=== PATIENT | male | born 1965 | race Caucasian/White ===

== ENCOUNTER 2016-03-08 18:10 | Emergency (ER) | payer OTHER ==
[2016-03-08] MEDS ORDERED: NORCO, ANEXSIA 5/325MG TABLET (HYDROcodone/ACETAMINOPHEN) As Ordered ONE (19:04)
--- NOTE | 2016-03-08 20:10 | EDDOCDS ---
Physician Documentation [facility] Name: Ajay Rodriguez Age: 50 yrs Sex: Male : 1965 Arrival Date: 03/08/2016 Time: 18:10 Bed PR Private MD: NO PRIMARY PHYSICIAN, . Disposition: 03/08/16 19:55 Discharged to Home/Self Care. Impression: Sprain of unspecified site of left knee. - Condition is Stable. - Discharge Instructions: Crutch Use, Knee Sprain. - Prescriptions for [place] 5- 325 mg Oral Tablet - take 1 tablet by ORAL route every 6 hours As needed MDD: 4 tabs; 10 tablet. - Work Release Form - 5 day, Medication Reconciliation, Local Pharmacy Hours form. - Follow up: Emergency Department; When: As needed; Reason: Worsening of conditions. Follow up: [facility]; When: Call to arrange an appointment; Reason: Wound/Symptom Recheck, Further diagnostic work-up, Recheck today's complaints, Continuance of care, To establish care. - Problem is new. - Symptoms are unchanged. Historical: - Allergies: Coconut; - Home Meds: 1. gabapentin 300 mg Oral tab daily as needed 2. hydrocodone-acetaminophen 7.5-325 mg Oral tab as needed 3. Flexeril 10 mg Oral tab daily 4. albuterol sulfate 2.5 mg/0.5 mL Inhl nebu twice a day - PMHx: Restless leg syndrome; Bulging disc; COPD; - PSHx: Left knee repair; Scar surgery to left leg; Tonsillectomy; Nose surgery; - Social history: Smoking status: Patient uses tobacco products, light tobacco smoker. No barriers to communication noted, The patient speaks fluent Belizean, Speaks appropriately for age. - Family history: Not pertinent. - : The pt / caregiver states he / she is not on anticoagulants. Home medication list is obtained from the patient. - Exposure Risk Screening:: None identified. Vital Signs: 03/08 18:12 BP 158 / 93; Pulse 83; Resp 18 S; Temp 97.0(O); Pulse Ox 97% on R/A; Weight 97.52 kg / dd6 214.99 lbs (R); Height 5 ft. 8 in. (172.72 cm) (R); 20:01 BP 136 / 90 RA Sitting (auto/lg); Pulse 68; Resp 16; Temp 97.5(O); Pulse Ox 97% on R/A; rs6 Pain 6/10; 18:12 Body Mass Index 32.69 (97.52 kg, 172.72 cm) dd6 MDM: 18:18 Knee, Complete Ordered. EDMS 19:01 HYDROcodone-acetaminophen 5 mg-325 mg 1 tabs PO once ordered. dt4 19:29 [facility] Payment Agreement was scanned into [employer] and attached to record. gjb 19:29 Financial registration complete. gjb 19:52 Knee Immobilizer ordered. dt4 19:52 Crutches ordered. dt4 Administered Medications: 19:09 Drug: HYDROcodone-acetaminophen 1 tabs [hydrocodone 5 mg-acetaminophen 325 mg tablet (1 cjh tabs)] Route: PO; 20:08 Follow up: Response: Confirmed pt not driving.; No Adverse Reaction; No significant cjh change. Signatures: Dispatcher [employer] EDMN Jennifer Thao RN RN [facility] Re Yun, PA-C PA-C dt4 Agata Chacko RN RN kc3 Pascale Shah The chart was reviewed and I authenticate all verbal orders and agree with the evaluation and treatment provided.Attachments: 19:29 [facility] Payment Agreement [facility] MTDD
--- NOTE | 2016-03-08 20:10 | EDDOCDS ---
Nurse's Notes [facility] Name: Ajay Rodriguez Age: 50 yrs Sex: Male : 1965 Arrival Date: 03/08/2016 Time: 18:10 Bed PR Private MD: NO PRIMARY PHYSICIAN, . Diagnosis: Sprain of unspecified site of left knee Presentation: 03/08 18:14 Presenting complaint: Patient states: slipped on ice today landing on left knee with no kc3 head injury reported. Adult Sepsis Screening: The patient does not have new or worsening altered mentation. Patient's respiratory rate is less than 22. Systolic blood pressure is greater than 100. Patient has a qSOFA score of 0- Negative Sepsis Screen. Suicide/Homicide risk assessment- the patient denies having any suicidal and/or homicidal ideations and does not present with any other emotional, behavioral or mental health complaints. Status: Patient is not a account services analyst or dependent. Transition of care: patient was not received from another setting of care. 18:14 Acuity: LEONILA Level 3 kc3 18:14 Method Of Arrival: Walkin/Carried/Asstd kc3 Triage Assessment: 18:20 General: Appears in no apparent distress, comfortable, Behavior is appropriate for age, kc3 cooperative. Pain: Location: left knee Pain currently is 8 out of 10 on a pain scale. Pt Declines HIV testing. Neurological: Level of Consciousness is awake, alert, obeys commands. Respiratory: Respiratory effort is even, unlabored. Derm: Skin is pink, warm & dry. Musculoskeletal: Circulation, motion, and sensation intact Range of motion limited in left knee. Historical: - Allergies: Coconut; - Home Meds: 1. gabapentin 300 mg Oral tab daily as needed 2. hydrocodone-acetaminophen 7.5-325 mg Oral tab as needed 3. Flexeril 10 mg Oral tab daily 4. albuterol sulfate 2.5 mg/0.5 mL Inhl nebu twice a day - PMHx: Restless leg syndrome; Bulging disc; COPD; - PSHx: Left knee repair; Scar surgery to left leg; Tonsillectomy; Nose surgery; - Social history: Smoking status: Patient uses tobacco products, light tobacco smoker. No barriers to communication noted, The patient speaks fluent Turkish, Speaks appropriately for age. - Family history: Not pertinent. - : The pt / caregiver states he / she is not on anticoagulants. Home medication list is obtained from the patient. - Exposure Risk Screening:: None identified. Screenin:11 Screening information is obtained from the patient. Fall risk: No risks identified. [facility] Assistance ADL's: requires no assistance with activities of daily living. Abuse/DV Screen: The patient / caregiver reports he/she is: not in a situation that causes fear, pain or injury. Nutritional screening: No deficits noted. Advance Directives: There is no active DNR order. home support is adequate. Assessment: 19:11 General: Appears in no apparent distress, comfortable, Behavior is appropriate for age, [facility] cooperative. Pain: Location: left leg and left knee Pain currently is 6 out of 10 on a pain scale. Respiratory: Airway is patent Respiratory effort is even, unlabored, Respiratory pattern is regular, symmetrical. Derm: Skin is pink, warm & dry. Musculoskeletal: Range of motion limited in left knee and left ankle. 20:06 General: No changes from previous assessment, knee immobilizer applied, crutch training [facility] completed, denies further needs. Reviewed discharge instructions, all questions answered, escorted via wheelchair to lobby where awaiting ride. Vital Signs: 18:12 BP 158 / 93; Pulse 83; Resp 18 S; Temp 97.0(O); Pulse Ox 97% on R/A; Weight 97.52 kg dd6 (R); Height 5 ft. 8 in. (172.72 cm) (R); 20:01 BP 136 / 90 RA Sitting (auto/lg); Pulse 68; Resp 16; Temp 97.5(O); Pulse Ox 97% on R/A; rs6 Pain 6/10; 18:12 Body Mass Index 32.69 (97.52 kg, 172.72 cm) dd6 Vitals: 18:12 Log In Time: March 08, 2016 at 18:10. dd6 ED Course: 18:12 Patient visited by Samy Ng PCA. dd6 18:12 NO PRIMARY PHYSICIAN, . is Private Physician. dd6 18:12 Patient moved to Waiting dd6 18:12 Patient moved to Pre RCE dd6 18:15 Triage Initiated kc3 18:24 Patient moved to Triage 2 ms18 18:49 Re Yun PA-C is PHCP. dt4 18:49 Roula Hess MD is Attending Physician. dt4 18:49 Patient visited by Re Yun PA-C. dt4 19:09 Patient moved to TR1 rs6 19:11 The patient / caregiver is instructed regarding the plan of care and ED course. [facility] 19:29 [facility] Payment Agreement was scanned into [employer] and attached to record. gjb 19:41 Patient name changed from Ajay\S\\S\Jennifer\S\ to Ajay\S\Wyatt\S\Jennifer. EDMS 19:52 [facility] is Referral Physician. dt4 19:53 Patient moved to PR / [facility] 20:01 Pt greeted and oriented to ED. Patient advised of names of staff involved in care, rs6 location of call story, wait times and NPO status. Patient has correct armband on for positive identification. Cardiac monitoring not applicable on this patient. 20:01 Knee immobilizer applied on left knee. Patient with positive distal sensation and brisk rs6 distal capillary refill after application. 20:05 Patient visited by Ashia Dubon PCA. rs6 20:06 No IV's were initiated during this patient's visit. No procedures done that require [facility] assistance. Administered Medications: 19:09 Drug: HYDROcodone-acetaminophen 1 tabs [hydrocodone 5 mg-acetaminophen 325 mg tablet (1 cjh tabs)] Route: PO; 20:08 Follow up: Response: Confirmed pt not driving.; No Adverse Reaction; No significant cjh change. Order Results: There are currently no results for this order. Outcome: 19:55 Discharge ordered by Provider. dt4 20:06 Discharge Assessment: Patient awake, alert and oriented x 3. No cognitive and/or cjh functional deficits noted. Patient verbalized understanding of disposition instructions. patient administered narcotics - yes. Pt provided with safe discharge. The following High Risk Discharge criteria are identified: None. Discharged to home via wheelchair, with crutches. Condition: good Condition: stable. Discharge instructions given to patient, Instructed on discharge instructions, follow up and referral plans. medication usage, no driving heavy equipment, Rest, Ice, Compression and Elevation. crutch walking, no drinking with medication. No special radiology studies were completed. Property :Personal belongings accompany Pt. 20:09 Patient left the ED. [facility] Signatures: Dispatcher [employer] EDMS BereniceSumeetSamy, JAPANESE TUTOR JAPANESE TUTOR dd6 Jennifer Thao,RN RN [facility] Re Yun PA-C PA-C dt4 Germania LiRN RN ms18 Ashia Dubon, JAPANESE TUTOR JAPANESE TUTOR rs6 Agata Chacko,RN RN kc3 Pascale Shah MTDD
--- NOTE | 2016-03-08 21:59 | REP ---
Clinical: Trauma/injury. Technique: AP, lateral, bilateral oblique and sunrise views of the left knee. Findings: Mild tricompartmental osteoarthritic degenerative changes are appreciated. No acute fracture or dislocation identified. No definite effusion. Mild anterolateral soft tissue swelling suggested. Impression: Mild swelling and tricompartmental osteoarthritic degenerative changes. No acute fracture or dislocation identified. Signed by Edward Amaro MD 03/08/2016 09:51 P
--- NOTE | 2016-03-10 21:10 | EDDOCDS ---
Physician Documentation [facility] Name: Ajay Rodriguez Age: 50 yrs Sex: Male : 1965 Arrival Date: 03/08/2016 Time: 18:10 Bed PR Private MD: NO PRIMARY PHYSICIAN, . Disposition: 03/08/16 19:55 Discharged to Home/Self Care. Impression: Sprain of unspecified site of left knee. - Condition is Stable. - Discharge Instructions: Crutch Use, Knee Sprain. - Prescriptions for [place] 5- 325 mg Oral Tablet - take 1 tablet by ORAL route every 6 hours As needed MDD: 4 tabs; 10 tablet. - Work Release Form - 5 day, Medication Reconciliation, Local Pharmacy Hours form. - Follow up: Emergency Department; When: As needed; Reason: Worsening of conditions. Follow up: [facility]; When: Call to arrange an appointment; Reason: Wound/Symptom Recheck, Further diagnostic work-up, Recheck today's complaints, Continuance of care, To establish care. - Problem is new. - Symptoms are unchanged. Historical: - Allergies: Coconut; - Home Meds: 1. gabapentin 300 mg Oral tab daily as needed 2. hydrocodone-acetaminophen 7.5-325 mg Oral tab as needed 3. Flexeril 10 mg Oral tab daily 4. albuterol sulfate 2.5 mg/0.5 mL Inhl nebu twice a day - PMHx: Restless leg syndrome; Bulging disc; COPD; - PSHx: Left knee repair; Scar surgery to left leg; Tonsillectomy; Nose surgery; - Social history: Smoking status: Patient uses tobacco products, light tobacco smoker. No barriers to communication noted, The patient speaks fluent Welsh, Speaks appropriately for age. - Family history: Not pertinent. - : The pt / caregiver states he / she is not on anticoagulants. Home medication list is obtained from the patient. - Exposure Risk Screening:: None identified. Vital Signs: 03/08 18:12 BP 158 / 93; Pulse 83; Resp 18 S; Temp 97.0(O); Pulse Ox 97% on R/A; Weight 97.52 kg / dd6 214.99 lbs (R); Height 5 ft. 8 in. (172.72 cm) (R); 20:01 BP 136 / 90 RA Sitting (auto/lg); Pulse 68; Resp 16; Temp 97.5(O); Pulse Ox 97% on R/A; rs6 Pain 08/06; 18:12 Body Mass Index 32.69 (97.52 kg, 172.72 cm) dd6 MDM: 18:18 Knee, Complete Ordered. EDMS 19:01 HYDROcodone-acetaminophen 5 mg-325 mg 1 tabs PO once ordered. dt4 : [facility] Payment Agreement was scanned into [employer] and attached to record. gjb : Financial registration complete. gjb 19:52 Knee Immobilizer ordered. dt4 19:52 Crutches ordered. dt4 03/09 09:30 T-Sheet-- Draft Copy was scanned into [employer] and attached to record. gb Administered Medications: 03/08 19:09 Drug: HYDROcodone-acetaminophen 1 tabs [hydrocodone 5 mg-acetaminophen 325 mg tablet (1 cjh tabs)] Route: PO; 20:08 Follow up: Response: Confirmed pt not driving.; No Adverse Reaction; No significant cj change. Signatures: Dispatcher [employer]Host EDMN Osiris Mednia, Reg Reg gb Jennifer Thao RN RN [facility] Re Yun PA-C PA-C dt4 Agata Chacko,JACOB RN fredy3 Pascale Shah The chart was reviewed and I authenticate all verbal orders and agree with the evaluation and treatment provided.Attachments: : [facility] Payment Agreement gjb 03/09 09:30 T-Sheet-- Draft Copy gb Chart Complete MTDD
--- NOTE | 2016-03-10 21:10 | EDDOCDS ---
Nurse's Notes [facility] Name: Ajay Rodriguez Age: 50 yrs Sex: Male : 1965 Arrival Date: 03/08/2016 Time: 18:10 Bed PR Private MD: NO PRIMARY PHYSICIAN, . Diagnosis: Sprain of unspecified site of left knee Presentation: 03/08 18:14 Presenting complaint: Patient states: slipped on ice today landing on left knee with no kc3 head injury reported. Adult Sepsis Screening: The patient does not have new or worsening altered mentation. Patient's respiratory rate is less than 22. Systolic blood pressure is greater than 100. Patient has a qSOFA score of 0- Negative Sepsis Screen. Suicide/Homicide risk assessment- the patient denies having any suicidal and/or homicidal ideations and does not present with any other emotional, behavioral or mental health complaints. Status: Patient is not a reference services head or dependent. Transition of care: patient was not received from another setting of care. 18:14 Acuity: LEONILA Level 3 kc3 18:14 Method Of Arrival: Walkin/Carried/Asstd kc3 Triage Assessment: 18:20 General: Appears in no apparent distress, comfortable, Behavior is appropriate for age, kc3 cooperative. Pain: Location: left knee Pain currently is 8 out of 10 on a pain scale. Pt Declines HIV testing. Neurological: Level of Consciousness is awake, alert, obeys commands. Respiratory: Respiratory effort is even, unlabored. Derm: Skin is pink, warm & dry. Musculoskeletal: Circulation, motion, and sensation intact Range of motion limited in left knee. Historical: - Allergies: Coconut; - Home Meds: 1. gabapentin 300 mg Oral tab daily as needed 2. hydrocodone-acetaminophen 7.5-325 mg Oral tab as needed 3. Flexeril 10 mg Oral tab daily 4. albuterol sulfate 2.5 mg/0.5 mL Inhl nebu twice a day - PMHx: Restless leg syndrome; Bulging disc; COPD; - PSHx: Left knee repair; Scar surgery to left leg; Tonsillectomy; Nose surgery; - Social history: Smoking status: Patient uses tobacco products, light tobacco smoker. No barriers to communication noted, The patient speaks fluent Turkish, Speaks appropriately for age. - Family history: Not pertinent. - : The pt / caregiver states he / she is not on anticoagulants. Home medication list is obtained from the patient. - Exposure Risk Screening:: None identified. Screenin:11 Screening information is obtained from the patient. Fall risk: No risks identified. [facility] Assistance ADL's: requires no assistance with activities of daily living. Abuse/DV Screen: The patient / caregiver reports he/she is: not in a situation that causes fear, pain or injury. Nutritional screening: No deficits noted. Advance Directives: There is no active DNR order. home support is adequate. Assessment: 19:11 General: Appears in no apparent distress, comfortable, Behavior is appropriate for age, [facility] cooperative. Pain: Location: left leg and left knee Pain currently is 6 out of 10 on a pain scale. Respiratory: Airway is patent Respiratory effort is even, unlabored, Respiratory pattern is regular, symmetrical. Derm: Skin is pink, warm & dry. Musculoskeletal: Range of motion limited in left knee and left ankle. 20:06 General: No changes from previous assessment, knee immobilizer applied, crutch training [facility] completed, denies further needs. Reviewed discharge instructions, all questions answered, escorted via wheelchair to lobby where awaiting ride. Vital Signs: 18:12 BP 158 / 93; Pulse 83; Resp 18 S; Temp 97.0(O); Pulse Ox 97% on R/A; Weight 97.52 kg dd6 (R); Height 5 ft. 8 in. (172.72 cm) (R); 20:01 BP 136 / 90 RA Sitting (auto/lg); Pulse 68; Resp 16; Temp 97.5(O); Pulse Ox 97% on R/A; rs6 Pain 6/10; 18:12 Body Mass Index 32.69 (97.52 kg, 172.72 cm) dd6 Vitals: 18:12 Log In Time: March 08, 2016 at 18:10. dd6 ED Course: 18:12 Patient visited by Samy Ng PCA. dd6 18:12 NO PRIMARY PHYSICIAN, . is Private Physician. dd6 18:12 Patient moved to Waiting dd6 18:12 Patient moved to Pre RCE dd6 18:15 Triage Initiated kc3 18:24 Patient moved to Triage 2 ms18 18:49 Re Yun PA-C is PHCP. dt4 18:49 Roula Hess MD is Attending Physician. dt4 18:49 Patient visited by Re Yun PA-C. dt4 19:09 Patient moved to TR1 rs6 19:11 The patient / caregiver is instructed regarding the plan of care and ED course. cjh 19:29 [facility] Payment Agreement was scanned into [employer] and attached to record. gjb 19:41 Patient name changed from Ajay\S\\S\Jennifer\S\ to Ajay\S\Wyatt\S\Jennifer. EDMS 19:52 [facility] is Referral Physician. dt4 19:53 Patient moved to PR2 / cj 20:01 Pt greeted and oriented to ED. Patient advised of names of staff involved in care, rs6 location of call story, wait times and NPO status. Patient has correct armband on for positive identification. Cardiac monitoring not applicable on this patient. 20:01 Knee immobilizer applied on left knee. Patient with positive distal sensation and brisk rs6 distal capillary refill after application. 20:05 Patient visited by Ashia Dubon PCA. rs6 20:06 No IV's were initiated during this patient's visit. No procedures done that require [facility] assistance. 22:46 Knee, Complete Returned. EDMS 01 09:30 T-Sheet-- Draft Copy was scanned into [employer] and attached to record. gb Administered Medications: 03/08 19:09 Drug: HYDROcodone-acetaminophen 1 tabs [hydrocodone 5 mg-acetaminophen 325 mg tablet (1 cjh tabs)] Route: PO; 20:08 Follow up: Response: Confirmed pt not driving.; No Adverse Reaction; No significant cj change. Order Results: Radiology Order: Knee, Complete Test: Knee, Complete REASON FOR EXAMINATION: left knee injury; Clinical: Trauma/injury.; ; Technique: AP, lateral, bilateral oblique and sunrise views of the left knee.; ; Findings:; Mild tricompartmental osteoarthritic degenerative changes are appreciated. No; acute fracture or dislocation identified. No definite effusion. Mild; anterolateral soft tissue swelling suggested.; ; Impression:; Mild swelling and tricompartmental osteoarthritic degenerative changes.; No acute fracture or dislocation identified.; ; ; Signed by; Edward Amaro MD 03/08/2016 09:51 P; Outcome: 19:55 Discharge ordered by Provider. dt4 20:06 Discharge Assessment: Patient awake, alert and oriented x 3. No cognitive and/or [facility] functional deficits noted. Patient verbalized understanding of disposition instructions. patient administered narcotics - yes. Pt provided with safe discharge. The following High Risk Discharge criteria are identified: None. Discharged to home via wheelchair, with crutches. Condition: good Condition: stable. Discharge instructions given to patient, Instructed on discharge instructions, follow up and referral plans. medication usage, no driving heavy equipment, Rest, Ice, Compression and Elevation. crutch walking, no drinking with medication. No special radiology studies were completed. Property :Personal belongings accompany Pt. 20:09 Patient left the ED. [facility] Signatures: Dispatcher [employer] EDMS Osiris Medina, Reg Reg gb Samy Ng, POWER WHEELCHAIR MECHANIC POWER WHEELCHAIR MECHANIC dd6 Jennifer Thao RN RN [facility] Re Yun, PA-C PA-C dt4 Germania Li,JACOB RN ms18 Ashia Dubon, POWER WHEELCHAIR MECHANIC POWER WHEELCHAIR MECHANIC rs6 Agata Chacko RN RN kc3 Pascale Shah Chart Complete MTDD
--- NOTE | 2016-03-10 21:10 | EDDOCDS ---
Physician Documentation [facility] Name: Ajay Rodriguez Age: 50 yrs Sex: Male : 1965 Arrival Date: 03/08/2016 Time: 18:10 Bed PR Private MD: NO PRIMARY PHYSICIAN, . Disposition: 03/08/16 19:55 Discharged to Home/Self Care. Impression: Sprain of unspecified site of left knee. - Condition is Stable. - Discharge Instructions: Crutch Use, Knee Sprain. - Prescriptions for [place] 5- 325 mg Oral Tablet - take 1 tablet by ORAL route every 6 hours As needed MDD: 4 tabs; 10 tablet. - Work Release Form - 5 day, Medication Reconciliation, Local Pharmacy Hours form. - Follow up: Emergency Department; When: As needed; Reason: Worsening of conditions. Follow up: [facility]; When: Call to arrange an appointment; Reason: Wound/Symptom Recheck, Further diagnostic work-up, Recheck today's complaints, Continuance of care, To establish care. - Problem is new. - Symptoms are unchanged. Historical: - Allergies: Coconut; - Home Meds: 1. gabapentin 300 mg Oral tab daily as needed 2. hydrocodone-acetaminophen 7.5-325 mg Oral tab as needed 3. Flexeril 10 mg Oral tab daily 4. albuterol sulfate 2.5 mg/0.5 mL Inhl nebu twice a day - PMHx: Restless leg syndrome; Bulging disc; COPD; - PSHx: Left knee repair; Scar surgery to left leg; Tonsillectomy; Nose surgery; - Social history: Smoking status: Patient uses tobacco products, light tobacco smoker. No barriers to communication noted, The patient speaks fluent Egyptian, Speaks appropriately for age. - Family history: Not pertinent. - : The pt / caregiver states he / she is not on anticoagulants. Home medication list is obtained from the patient. - Exposure Risk Screening:: None identified. Vital Signs: 03/08 18:12 BP 158 / 93; Pulse 83; Resp 18 S; Temp 97.0(O); Pulse Ox 97% on R/A; Weight 97.52 kg / dd6 214.99 lbs (R); Height 5 ft. 8 in. (172.72 cm) (R); 20:01 BP 136 / 90 RA Sitting (auto/lg); Pulse 68; Resp 16; Temp 97.5(O); Pulse Ox 97% on R/A; rs6 Pain 08/06; 18:12 Body Mass Index 32.69 (97.52 kg, 172.72 cm) dd6 MDM: 18:18 Knee, Complete Ordered. EDMS 19:01 HYDROcodone-acetaminophen 5 mg-325 mg 1 tabs PO once ordered. dt4 : [facility] Payment Agreement was scanned into [address] and attached to record. gjb : Financial registration complete. gjb 19:52 Knee Immobilizer ordered. dt4 19:52 Crutches ordered. dt4 03/09 09:30 T-Sheet-- Draft Copy was scanned into [address] and attached to record. gb Administered Medications: 03/08 19:09 Drug: HYDROcodone-acetaminophen 1 tabs [hydrocodone 5 mg-acetaminophen 325 mg tablet (1 cjh tabs)] Route: PO; 20:08 Follow up: Response: Confirmed pt not driving.; No Adverse Reaction; No significant cj change. Signatures: Dispatcher [employer] EDMO Osiris Medina, Reg Reg gb Jennifer Thao RN RN [facility] Re Yun PA-C PA-C dt4 Agata Chacko,JACOB RN [email or web address] Pascale Shah The chart was reviewed and I authenticate all verbal orders and agree with the evaluation and treatment provided.Attachments: : [facility] Payment Agreement gjb 03/09 09:30 T-Sheet-- Draft Copy gb Chart Complete MTDD
== END 2016-03-08 20:09 | disposition home or self-care (01) ==
LOC: M ED 18:10
DX: S83.92XA Sprain of unspecified site of left knee, initial encounter (principal); W19.XXXA Unspecified fall, initial encounter; Y92.89 Other specified places as the place of occurrence of the external cause; Y93.89 Activity, other specified; Y99.0 Civilian activity done for income or pay; G25.81 Restless legs syndrome; M51.9 Unspecified thoracic, thoracolumbar and lumbosacral intervertebral disc disorder; J44.9 Chronic obstructive pulmonary disease, unspecified; Z79.51 Long term (current) use of inhaled steroids; Z79.899 Other long term (current) drug therapy; Z91.018 Allergy to other foods; F17.210 Nicotine dependence, cigarettes, uncomplicated

== ENCOUNTER 2016-08-25 19:01 | Emergency (ER) | payer MEDICAID, OTHER ==
[~2016-08-25] VITALS: Ht 175.3 cm; Wt 48.2 kg
[2016-08-25] MEDS ORDERED: HYDROmorphone HCL 1 MG/ML SYRINGE (J1170) IM ONE (23:15)
--- NOTE | 2016-08-26 | REPUSA ---
CT of the lumbar spine without contrast Clinical history: Pain. Trauma. Technique: Multiple axial CT images were obtained through the lumbar spine without administration of contrast. Coronal and sagittal 3-D reconstructed images were also obtained. Findings: The lumbar vertebral bodies are in satisfactory positioning and alignment. No fractures or dislocatio ns are demonstrated. Intervertebral disc spaces are well-maintained. There is no evidence of facet ruiz bluxation. The neural foramen appear grossly patent. The spinal canal demonstrates normal caliber and contour without evidence of spinal stenosis. The surrounding soft tissues are within normal limits. Impression: Unremarkable CT examination of the lumbar spine.
[2016-08-26 00:35] VITALS: BP 130/85
== END 2016-08-26 00:39 | disposition home or self-care (01) ==
LOC: EDBD 19:01 → M ED 19:01
DX: S39.012A Strain of muscle, fascia and tendon of lower back, initial encounter (principal); X58.XXXA Exposure to other specified factors, initial encounter; Y92.89 Other specified places as the place of occurrence of the external cause; Y93.89 Activity, other specified; Y99.8 Other external cause status; M51.36 Other intervertebral disc degeneration, lumbar region; J44.9 Chronic obstructive pulmonary disease, unspecified; Z87.442 Personal history of urinary calculi; F17.200 Nicotine dependence, unspecified, uncomplicated

== ENCOUNTER 2016-11-19 16:42 | Emergency (ER) | payer OTHER ==
[~2016-11-19] VITALS: Ht 172.7 cm; Wt 107.7 kg
[2016-11-19] MEDS ORDERED: NS 1,000 ML IV SCH (16:58)
[2016-11-19] MEDS ORDERED: ASPIRIN 81 MG CHEW TABLET PO ONE (17:00)
[2016-11-19] MEDS: NITROGLYCERIN 0.4 MG SUBL TABLET SL PRN ×2 (17:13→17:46)
[2016-11-19 17:32] LABS: BASO # 0.1 K/mm3 (0.0-0.2); BASO % 0.8 % (0.0-1.0); EOS # 0.1 K/mm3 (0.0-0.50); EOS % 1.6 % (0.0-3.0); LARGE UNSTAINED CELL # 0.1 K/mm3 (0.0-0.4); LARGE UNSTAINED CELL % 1.8 % (0.0-4.0); LYMPH # 1.8 K/mm3 (1.5-4.5); LYMPH % 25.2 % (24.0-44.0); MEAN CORPUSCULAR HEMOGLOBIN 31.9 pg (27.0-33.0); MEAN CORPUSCULAR VOLUME 88.7 fl (80.0-96.0); MONO # 0.4 K/mm3 (0.0-0.8); MONO % 5.4 % (0.0-5.0); NEUTROPHILS # 4.7 K/mm3 (1.8-7.7); NEUTROPHILS % 65.1 % (36.0-66.0); PLATELET COUNT, AUTOMATED 246 k/mm3 (150-450); RED CELL DISTRIBUTION WIDTH 13.4 % (11.5-14.5); WHITE BLOOD COUNT 7.2 K/mm3 (4.0-10.0)
[2016-11-19 17:34] LABS: INR 0.94
[2016-11-19 17:45] LABS: ALBUMIN 3.7 GM/DL (3.2-5.2); ALBUMIN/GLOBULIN RATIO 1.09 (1.00-1.93); ALKALINE PHOSPHATASE 63 U/L (45-117); ALT/SGPT 35 U/L (12-78); ANION GAP 8 MEQ/L (8-16); AST/SGOT 12 U/L (15-37); BILIRUBIN,DIRECT 0.1 MG/DL (0.0-0.2); BILIRUBIN,TOTAL 0.6 MG/DL (0.2-1.0); BLOOD UREA NITROGEN 14 MG/DL (7-18); CALCIUM LEVEL 8.1 MG/DL (8.5-10.1); CARBON DIOXIDE LEVEL 27 MEQ/L (21-32); CHLORIDE LEVEL 105 MEQ/L (98-107); CREATININE FOR GFR 0.81 MG/DL (0.70-1.30); GLOMERULAR FILTRATION RATE > 60.0 (>56); GLUCOSE, FASTING 78 MG/DL (70-105); POTASSIUM SERUM 3.8 MEQ/L (3.5-5.1); SODIUM LEVEL 140 MEQ/L (136-145); TOTAL PROTEIN 7.1 GM/DL (6.4-8.2)
[2016-11-19 17:46] VITALS: BP 138/83
[2016-11-19] MEDS ORDERED: ALBU17IN2 INH (18:28)
[2016-11-19 18:45] VITALS: BP 132/82
--- NOTE | 2016-11-20 13:20 | REP ---
CHEST, SINGLE VIEW: There is no evidence of acute infiltrate. No pleural effusion is seen. The heart is normal in size. The mediastinal silhouette is unremarkable. The visualized osseous structures are intact. IMPRESSION: No acute pulmonary disease. Signed by Haris Uribe MD 11/20/2016 07:03 P
--- NOTE | 2016-11-21 08:20 | ECGEPIP ---
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
== END 2016-11-19 18:49 | disposition home or self-care (01) ==
LOC: M ED 16:42
DX: R07.89 Other chest pain (principal); J44.9 Chronic obstructive pulmonary disease, unspecified; I10 Essential (primary) hypertension; F17.210 Nicotine dependence, cigarettes, uncomplicated

== ENCOUNTER → 2017-01-18 | Outpatient (CLI) | payer OTHER ==
[~2017-01-18] MED LIST: ALBU17IN2 INH
--- NOTE | 2017-01-24 18:44 | SLEEPHOME ---
DATE OF PROCEDURE: 01/18/2017 ORDERED BY: Dr. Santos Diagnostic home sleep testing was performed due to concern for the obstructive sleep apnea syndrome. For testing, a NOX-T3 respiratory monitoring device was used. Continuous record was made of pulse, oxygen saturation, air flow, chest and abdominal strain and body position. 10 hours and 59 minutes of data were reviewed. Of these, 6 hours were marked as time in bed. During the interval marked time in bed, there were 108 respiratory events identified of 10 seconds in duration or greater for a respiratory event index of 18. The events were primarily obstructive. Baseline pulse rate 52. Pulse rate ranged 100 to 39. Baseline saturation 91%. Lowest oxygen saturation 81%. Testing was performed in both the supine and nonsupine positions. IMPRESSION: Abnormal home sleep testing with repetitive respiratory events and oxygen desaturations to 81% with a respiratory event index of 18 is consistent with the obstructive sleep apnea syndrome. RECOMMENDATION: The patient should be encouraged to undergo a formal sleep evaluation and in laboratory pressure titration.
== END ==
LOC: M SLEEP HO 09:56
PROVIDERS: ATTEND Family Medicine Addiction Medicine
DX: G47.33 Obstructive sleep apnea (adult) (pediatric) (principal)

== ENCOUNTER → 2017-02-08 | Outpatient (CLI) | payer OTHER ==
[~2017-02-08] MED LIST changes: +ALBU83IN INH; +ANOR1AER IN; +ARNU1INH3 IN; +LIPI80TA PO; +PANT40TA2 PO
--- NOTE | 2017-02-08 10:29 | REP ---
Abdominal right upper quadrant ultrasound: There is a negative Blanco's sign to transducer pressure. There are multiple small non mobile noncalcified polyps versus adherent noncalcified calculi along the gallbladder wall measuring approximate 3 mm in diameter. There are no mobile gallbladder calculi. No gallbladder wall thickening or pericholecystic fluid. There is no intrahepatic or extrahepatic biliary duct dilatation. The common duct measures 4.5 mm in diameter. The hepatic parenchyma is mildly hyperechoic compatible with hepato steatosis. The visualized portion of the pancreatic head is unremarkable. The body and tail are obscured by bowel gas. There is no right renal hydronephrosis or calculus. There is a 9 mm upper pole simple cyst. There is no solid renal mass. The right kidney is normal size measuring 10.4 cm craniocaudad length. There is no free fluid in the right upper quadrant. Impression: Gallbladder polyps versus adherent noncalcified calculi. Otherwise, negative abdominal right upper quadrant ultrasound. The simple cyst in the right kidney is incidentally noted. Signed by Haris Camejo MD 02/08/2017 10:20 A
[2017-02-08 12:05] LABS: BASO # 0.1 10^3/uL (0.0-0.2); BASO % 0.9 % (0.0-1.0); EOS # 0.1 10^3/uL (0.0-0.50); EOS % 1.6 % (0.0-3.0); IMMATURE GRANULOCYTE % 0.3 % (0-0); LYMPH # 1.9 10^3/uL (1.5-4.5); LYMPH % 26.9 % (24.0-44.0); MEAN CORPUSCULAR HEMOGLOBIN 30.3 pg (27.0-33.0); MEAN CORPUSCULAR HGB CONC 34.3 g/dl (32.0-36.5); MEAN CORPUSCULAR VOLUME 88.3 fl (80.0-96.0); MONO # 0.5 10^3/uL (0.0-0.8); MONO % 6.8 % (0.0-5.0); NEUTROPHILS # 4.4 10^3/uL (1.8-7.7); NEUTROPHILS % 63.5 % (36.0-66.0); PLATELET COUNT, AUTOMATED 310 10^3/uL (150-450); RED CELL DISTRIBUTION WIDTH 13.2 % (11.5-14.5); WHITE BLOOD COUNT 6.9 10^3/uL (4.0-10.0)
[2017-02-08 12:15] LABS: INR 0.94
[2017-02-08 12:35] LABS: ALBUMIN 3.8 GM/DL (3.2-5.2); ALBUMIN/GLOBULIN RATIO 1.12 (1.00-1.93); ALKALINE PHOSPHATASE 70 U/L (45-117); ALT/SGPT 38 U/L (12-78); ANION GAP 7 MEQ/L (8-16); AST/SGOT 20 U/L (7-37); BILIRUBIN,TOTAL 0.5 MG/DL (0.2-1.0); BLOOD UREA NITROGEN 13 MG/DL (7-18); CALCIUM LEVEL 8.8 MG/DL (8.5-10.1); CARBON DIOXIDE LEVEL 27 MEQ/L (21-32); CHLORIDE LEVEL 105 MEQ/L (98-107); GLOMERULAR FILTRATION RATE > 60.0 (>56); GLUCOSE, FASTING 106 MG/DL (70-105); POTASSIUM SERUM 4.8 MEQ/L (3.5-5.1); SODIUM LEVEL 139 MEQ/L (136-145); TOTAL PROTEIN 7.2 GM/DL (6.4-8.2)
--- NOTE | 2017-02-08 13:08 | REP ---
NUCLEAR GASTRIC EMPTYING SCAN: Following the oral administration of 1.09 mCi of technetium-99m sulfur colloid in two scrambled eggs and 6 ounces of water multiple images of the upper abdomen are performed in the anterior and posterior projections for 90 minutes. Gastric activity is measured and at the end of 90 minutes 52% of the ingested activity has emptied from the stomach. T1/2 is 92 minutes which is normal. IMPRESSION: Normal gastric emptying time. Signed by Haris Uribe MD 02/09/2017 09:11 A
== END ==
LOC: M RAD 08:47
PROVIDERS: ATTEND Internal Medicine Gastroenterology
DX: R14.2 Eructation (principal); K31.84 Gastroparesis; R11.0 Nausea

== ENCOUNTER 2017-02-28 08:43 | Day surgery (SDC) | payer OTHER ==
[2017-02-28] MEDS: NS 1,000 ML IV (09:47)
[2017-02-28] MEDS ORDERED: PROPOFOL 200 MG/20 ML VIAL As Ordered (10:13)
[2017-02-28] MEDS ORDERED: LIDOCAINE 2% INJ 100 MG/5 ML SDV (FOR ANES.) As Ordered (10:13)
[2017-02-28] MEDS: ALBUTEROL SULFATE 2.5 MG/0.5 ML INH NEB SOLN INH (10:27)
== END 2017-02-28 11:22 | disposition home or self-care (01) ==
LOC: M OPP 11:22
DX: R12 Heartburn (principal); K44.9 Diaphragmatic hernia without obstruction or gangrene; K29.70 Gastritis, unspecified, without bleeding; G47.9 Sleep disorder, unspecified; R00.1 Bradycardia, unspecified; E78.00 Pure hypercholesterolemia, unspecified; G43.909 Migraine, unspecified, not intractable, without status migrainosus; R56.9 Unspecified convulsions; J44.9 Chronic obstructive pulmonary disease, unspecified; Z79.899 Other long term (current) drug therapy; Z79.82 Long term (current) use of aspirin; Z91.018 Allergy to other foods; Z72.0 Tobacco use; Z86.718 Personal history of other venous thrombosis and embolism
CPT/HCPCS: 43239

== ENCOUNTER → 2017-05-06 | Outpatient (CLI) | payer OTHER | LOC: M SLEEP 20:00 | DX: G47.33 Obstructive sleep apnea (adult) (pediatric) (principal) | CPT/HCPCS: 95811 ==

== ENCOUNTER → 2017-05-11 | Outpatient (CLI) | payer OTHER | LOC: M RAD 10:01 | DX: R25.2 Cramp and spasm (principal); I25.10 Atherosclerotic heart disease of native coronary artery without angina pectoris | CPT/HCPCS: 93923 ==

== ENCOUNTER → 2017-05-17 | Outpatient (REF) | payer OTHER ==
[2017-05-17 12:26] LABS: VITAMIN B12 LEVEL 495 PG/ML
[2017-05-17 12:27] LABS: FOLATE 8.4 NG/ML
== END ==
LOC: M SFHCPLAZ 07:51
DX: R20.8 Other disturbances of skin sensation (principal)
CPT/HCPCS: 82746

== ENCOUNTER → 2017-06-12 | Outpatient (CLI) | payer OTHER | LOC: M RAD 10:17 | DX: I87.2 Venous insufficiency (chronic) (peripheral) (principal) | CPT/HCPCS: 93970 ==

== ENCOUNTER → 2017-06-28 | Outpatient (CLI) | payer OTHER | LOC: M RAD 07:50 | DX: R20.0 Anesthesia of skin (principal); M54.2 Cervicalgia | CPT/HCPCS: 72141 ==

== ENCOUNTER → 2017-06-30 | Outpatient (CLI) | payer OTHER | LOC: M RAD 12:22 | DX: M51.24 Other intervertebral disc displacement, thoracic region (principal) | CPT/HCPCS: 72146 ==

== ENCOUNTER 2017-07-16 17:08 | Emergency (ER) | payer OTHER ==
[2017-07-16 18:02] LABS: VENOUS BASE EXCESS 1.6 (-2.0-2.0); VENOUS O2 SATURATION 94.9 % (60.0-80.0); VENOUS PARTIAL PRESSURE CO2 44.9 mmHg (38.0-50.0); VENOUS PH 7.397 UNITS (7.330-7.430); VENOUS STANDARD HCO3 25.8 MEQ/L; VENOUS TOTAL CO2 28.4 MEQ/L (24.0-28.0)
[2017-07-16 18:03] LABS: BASO # 0.1 10^3/uL (0.0-0.2); BASO % 0.8 % (0.0-1.0); EOS # 0.2 10^3/uL (0.0-0.50); EOS % 2.2 % (0.0-3.0); HEMATOCRIT 43.6 % (42.0-52.0); HEMOGLOBIN 14.9 g/dl (13.5-17.5); IMMATURE GRANULOCYTE % 0.3 % (0-3.0); LYMPH # 2.1 10^3/uL (1.5-4.5); LYMPH % 28.6 % (24.0-44.0); MEAN CORPUSCULAR HEMOGLOBIN 29.3 pg (27.0-33.0); MEAN CORPUSCULAR HGB CONC 34.2 g/dl (32.0-36.5); MEAN CORPUSCULAR VOLUME 85.8 fl (80.0-96.0); MONO # 0.5 10^3/uL (0.0-0.8); MONO % 6.4 % (0.0-5.0); NEUTROPHILS # 4.6 10^3/uL (1.8-7.7); NEUTROPHILS % 61.7 % (36.0-66.0); PLATELET COUNT, AUTOMATED 241 10^3/uL (150-450); RED BLOOD COUNT 5.08 10^6/uL (4.30-6.10); WHITE BLOOD COUNT 7.4 10^3/uL (4.0-10.0)
[2017-07-16 18:21] LABS: D-DIMER QUANT 395.9 ng/ml (<500)
[2017-07-16 18:28] LABS: ANION GAP 6 MEQ/L (8-16); BLOOD UREA NITROGEN 13 MG/DL (7-18); CALCIUM LEVEL 8.2 MG/DL (8.5-10.1); CARBON DIOXIDE LEVEL 27 MEQ/L (21-32); CHLORIDE LEVEL 107 MEQ/L (98-107); CPK CREATINE PHOSPHOKINASE 116 U/L (39-308); CREATININE FOR GFR 0.94 MG/DL (0.70-1.30); GLOMERULAR FILTRATION RATE > 60.0 (>56); GLUCOSE, FASTING 162 MG/DL (70-100); SODIUM LEVEL 140 MEQ/L (136-145)
[2017-07-16] MEDS: NS 1,000 ML IV (18:28)
[2017-07-16 18:29] LABS: TROPONIN I < 0.02 NG/ML (< 0.10)
[2017-07-16] MEDS: MORPHINE 4 MG/ML 1ML VIAL/SYRINGE (J2270) IV (18:29)
[2017-07-16 18:34] LABS: CK-MB VALUE MASS 1.8 NG/ML (<3.6); MB/CK RELATIVE INDEX 1.55 (< OR =4)
[2017-07-16] MEDS: KETOROLAC 30 MG/ML VIAL (J1885) IV (19:14)
[2017-07-16 19:45] LABS: ESTIMATED AVERAGE GLUCOSE 140 MG/DL (60-110); HEMOGLOBIN A1c 6.5 %
[2017-07-16] MEDS: PERCOCET 5MG/325MG TAB PO (20:14)
== END 2017-07-16 20:27 | disposition home or self-care (01) ==
LOC: M ED 17:08
DX: R55 Syncope and collapse (principal); S22.31XA Fracture of one rib, right side, initial encounter for closed fracture; W22.09XA Striking against other stationary object, initial encounter; Y92.89 Other specified places as the place of occurrence of the external cause; E11.9 Type 2 diabetes mellitus without complications; R94.31 Abnormal electrocardiogram [ECG] [EKG]; J44.9 Chronic obstructive pulmonary disease, unspecified; G40.909 Epilepsy, unspecified, not intractable, without status epilepticus; M54.9 Dorsalgia, unspecified; G89.29 Other chronic pain; K21.9 Gastro-esophageal reflux disease without esophagitis; F17.210 Nicotine dependence, cigarettes, uncomplicated; Z87.442 Personal history of urinary calculi; Z87.19 Personal history of other diseases of the digestive system; Z98.890 Other specified postprocedural states; Z91.018 Allergy to other foods; Z79.899 Other long term (current) drug therapy
CPT/HCPCS: J2270

== ENCOUNTER 2017-07-31 11:48 | Emergency (ER) | payer OTHER ==
[2017-07-31] MEDS: MORPHINE 4 MG/ML 1ML VIAL/SYRINGE (J2270) IV (12:40)
[2017-07-31 12:43] LABS: BASO # 0.1 10^3/uL (0.0-0.2); BASO % 0.6 % (0.0-1.0); EOS # 0.2 10^3/uL (0.0-0.50); EOS % 1.8 % (0.0-3.0); HEMATOCRIT 40.9 % (42.0-52.0); HEMOGLOBIN 13.9 g/dl (13.5-17.5); IMMATURE GRANULOCYTE % 0.3 % (0-3.0); LYMPH % 22.4 % (24.0-44.0); MEAN CORPUSCULAR HEMOGLOBIN 29.1 pg (27.0-33.0); MEAN CORPUSCULAR VOLUME 85.7 fl (80.0-96.0); MONO # 0.8 10^3/uL (0.0-0.8); NEUTROPHILS # 5.9 10^3/uL (1.8-7.7); NEUTROPHILS % 65.9 % (36.0-66.0); PLATELET COUNT, AUTOMATED 435 10^3/uL (150-450); RED BLOOD COUNT 4.77 10^6/uL (4.30-6.10); RED CELL DISTRIBUTION WIDTH 14.6 % (11.5-14.5); WHITE BLOOD COUNT 8.9 10^3/uL (4.0-10.0)
[2017-07-31 13:03] LABS: ANION GAP 5 MEQ/L (8-16); BLOOD UREA NITROGEN 13 MG/DL (7-18); C REACTIVE PROTEIN QUANTITATIV 2.32 MG/DL (0.00-0.30); CALCIUM LEVEL 9.2 MG/DL (8.5-10.1); CARBON DIOXIDE LEVEL 28 MEQ/L (21-32); CHLORIDE LEVEL 104 MEQ/L (98-107); CREATININE FOR GFR 0.82 MG/DL (0.70-1.30); GLOMERULAR FILTRATION RATE > 60.0 (>56); GLUCOSE, FASTING 100 MG/DL (70-100); SODIUM LEVEL 137 MEQ/L (136-145)
[2017-07-31 13:13] LABS: ERYTHROCYTE SEDIMENTATION RATE 20 mm/hr (0-20)
[2017-07-31] MEDS: PERCOCET 5MG/325MG TAB PO (14:03)
== END 2017-07-31 14:16 | disposition home or self-care (01) ==
LOC: M ED 14:16
DX: G89.18 Other acute postprocedural pain (principal); M25.562 Pain in left knee; Z96.652 Presence of left artificial knee joint; I10 Essential (primary) hypertension; Z72.0 Tobacco use; Z98.61 Coronary angioplasty status; R56.9 Unspecified convulsions; R55 Syncope and collapse; I95.9 Hypotension, unspecified; R07.9 Chest pain, unspecified; J44.9 Chronic obstructive pulmonary disease, unspecified; G47.30 Sleep apnea, unspecified; K21.9 Gastro-esophageal reflux disease without esophagitis; K57.92 Diverticulitis of intestine, part unspecified, without perforation or abscess without bleeding; Z87.442 Personal history of urinary calculi; M54.9 Dorsalgia, unspecified; E11.9 Type 2 diabetes mellitus without complications; F43.10 Post-traumatic stress disorder, unspecified; F32.9 Major depressive disorder, single episode, unspecified; Z79.82 Long term (current) use of aspirin; Z79.899 Other long term (current) drug therapy; Z91.018 Allergy to other foods
CPT/HCPCS: J2270

== ENCOUNTER 2017-08-10 00:33 | Emergency (ER) | payer OTHER ==
[2017-08-10] MEDS: NS 500 ML IV (00:45)
[2017-08-10] MEDS: METOCLOPRAMIDE INJ 10MG/2ML VIAL (J2765) IV (00:58)
[2017-08-10] MEDS: NALOXONE INJ 2 MG/2 ML SYRINGE (J2310) IV (00:58)
[2017-08-10 01:00] LABS: BEDSIDE GLUCOSE 117 MG/DL (70-105)
[2017-08-10 01:01] LABS: BASO # 0.1 10^3/uL (0.0-0.2); BASO % 0.6 % (0.0-1.0); EOS # 0.2 10^3/uL (0.0-0.50); EOS % 2.4 % (0.0-3.0); HEMATOCRIT 37.6 % (42.0-52.0); HEMOGLOBIN 12.6 g/dl (13.5-17.5); IMMATURE GRANULOCYTE % 0.2 % (0-3.0); LYMPH # 3.1 10^3/uL (1.5-4.5); LYMPH % 32.4 % (24.0-44.0); MEAN CORPUSCULAR HGB CONC 33.5 g/dl (32.0-36.5); MEAN CORPUSCULAR VOLUME 86.4 fl (80.0-96.0); MONO # 0.7 10^3/uL (0.0-0.8); MONO % 7.7 % (0.0-5.0); NEUTROPHILS # 5.3 10^3/uL (1.8-7.7); NEUTROPHILS % 56.7 % (36.0-66.0); PLATELET COUNT, AUTOMATED 433 10^3/uL (150-450); RED BLOOD COUNT 4.35 10^6/uL (4.30-6.10); RED CELL DISTRIBUTION WIDTH 14.4 % (11.5-14.5); WHITE BLOOD COUNT 9.4 10^3/uL (4.0-10.0)
[2017-08-10 01:23] LABS: ALBUMIN 3.4 GM/DL (3.2-5.2); ALBUMIN/GLOBULIN RATIO 0.89 (1.00-1.93); ALKALINE PHOSPHATASE 105 U/L (45-117); ALT/SGPT 30 U/L (12-78); ANION GAP 8 MEQ/L (8-16); AST/SGOT 25 U/L (7-37); BILIRUBIN,DIRECT < 0.1 MG/DL (0.0-0.2); BILIRUBIN,TOTAL 0.4 MG/DL (0.2-1.0); BLOOD UREA NITROGEN 13 MG/DL (7-18); CALCIUM LEVEL 8.6 MG/DL (8.5-10.1); CARBON DIOXIDE LEVEL 26 MEQ/L (21-32); CHLORIDE LEVEL 107 MEQ/L (98-107); CREATININE FOR GFR 0.82 MG/DL (0.70-1.30); ETHYL ALCOHOL (ETHANOL) 0.152 % (0.000-0.010); GLOMERULAR FILTRATION RATE > 60.0 (>56); GLUCOSE, FASTING 106 MG/DL (70-100); POTASSIUM SERUM 4.1 MEQ/L (3.5-5.1); SODIUM LEVEL 141 MEQ/L (136-145); TOTAL PROTEIN 7.2 GM/DL (6.4-8.2)
[2017-08-10 01:45] LABS: ACETAMINOPHEN LEVEL < 2.0 UG/ML (10.0-30.0)
== END 2017-08-10 03:03 | disposition home or self-care (01) ==
LOC: M ED 00:33
DX: F10.929 Alcohol use, unspecified with intoxication, unspecified (principal); I10 Essential (primary) hypertension; J44.9 Chronic obstructive pulmonary disease, unspecified; E78.5 Hyperlipidemia, unspecified; K21.9 Gastro-esophageal reflux disease without esophagitis; M54.9 Dorsalgia, unspecified; G89.29 Other chronic pain; Z79.899 Other long term (current) drug therapy; Z79.82 Long term (current) use of aspirin; Z98.890 Other specified postprocedural states; Z91.018 Allergy to other foods
CPT/HCPCS: J2765

== ENCOUNTER → 2017-08-14 | Outpatient (CLI) | payer MEDICAID | LOC: M OUTALCOH 08:47 | DX: F10.20 Alcohol dependence, uncomplicated (principal) ==

== ENCOUNTER 2017-08-23 11:06 | Outpatient (RCR) | payer MEDICAID | END 2017-08-26 | LOC: M OUTALCOH 11:06 | DX: F10.20 Alcohol dependence, uncomplicated (principal); F17.200 Nicotine dependence, unspecified, uncomplicated ==

== ENCOUNTER 2017-09-01 11:33 | Outpatient (RCR) | payer MEDICAID | END 2017-09-26 | LOC: M OUTALCOH 11:33 | DX: F10.20 Alcohol dependence, uncomplicated (principal); F17.200 Nicotine dependence, unspecified, uncomplicated ==

== ENCOUNTER → 2017-09-21 | Outpatient (REF) | payer OTHER ==
[2017-09-21 17:37] LABS: ALBUMIN/GLOBULIN RATIO 1.11 (1.00-1.93); ALKALINE PHOSPHATASE 148 U/L (45-117); ALT/SGPT 42 U/L (12-78); ANION GAP 8 MEQ/L (8-16); AST/SGOT 18 U/L (7-37); BILIRUBIN,TOTAL 0.7 MG/DL (0.2-1.0); BLOOD UREA NITROGEN 15 MG/DL (7-18); CALCIUM LEVEL 9.1 MG/DL (8.5-10.1); CARBON DIOXIDE LEVEL 29 MEQ/L (21-32); CHLORIDE LEVEL 103 MEQ/L (98-107); CREATININE FOR GFR 0.97 MG/DL (0.70-1.30); GLOMERULAR FILTRATION RATE > 60.0 (>56); GLUCOSE, FASTING 92 MG/DL (70-100); POTASSIUM SERUM 4.2 MEQ/L (3.5-5.1); SODIUM LEVEL 140 MEQ/L (136-145); TOTAL PROTEIN 7.6 GM/DL (6.4-8.2)
[2017-09-21 18:01] LABS: BASO # 0.1 10^3/uL (0.0-0.2); BASO % 0.8 % (0.0-1.0); EOS # 0.1 10^3/uL (0.0-0.50); EOS % 1.5 % (0.0-3.0); HEMATOCRIT 46.1 % (42.0-52.0); HEMOGLOBIN 15.3 g/dl (13.5-17.5); IMMATURE GRANULOCYTE % 0.2 % (0-3.0); LYMPH # 2.4 10^3/uL (1.5-4.5); LYMPH % 28.9 % (24.0-44.0); MEAN CORPUSCULAR HEMOGLOBIN 28.1 pg (27.0-33.0); MEAN CORPUSCULAR HGB CONC 33.2 g/dl (32.0-36.5); MEAN CORPUSCULAR VOLUME 84.6 fl (80.0-96.0); MONO # 0.6 10^3/uL (0.0-0.8); MONO % 7.6 % (0.0-5.0); PLATELET COUNT, AUTOMATED 322 10^3/uL (150-450); RED BLOOD COUNT 5.45 10^6/uL (4.30-6.10); RED CELL DISTRIBUTION WIDTH 14.4 % (11.5-14.5); WHITE BLOOD COUNT 8.3 10^3/uL (4.0-10.0)
== END ==
LOC: M SFHCPLAZ 15:09
DX: R11.14 Bilious vomiting (principal)
CPT/HCPCS: 80053

== ENCOUNTER → 2017-10-13 | Outpatient (REF) | payer OTHER ==
[2017-10-13 11:29] LABS: ANION GAP 10 MEQ/L (8-16); BLOOD UREA NITROGEN 16 MG/DL (7-18); CALCIUM LEVEL 9.1 MG/DL (8.5-10.1); CARBON DIOXIDE LEVEL 27 MEQ/L (21-32); CHLORIDE LEVEL 107 MEQ/L (98-107); CREATININE FOR GFR 0.82 MG/DL (0.70-1.30); GLOMERULAR FILTRATION RATE > 60.0 (>56); GLUCOSE, FASTING 87 MG/DL (70-100); POTASSIUM SERUM 3.9 MEQ/L (3.5-5.1); SODIUM LEVEL 144 MEQ/L (136-145)
== END ==
LOC: M SFHCPLAZ 08:40
DX: Z83.3 Family history of diabetes mellitus (principal)

== ENCOUNTER → 2017-10-14 | Outpatient (CLI) | payer OTHER ==
[2017-10-14 09:52] LABS: ANION GAP 7 MEQ/L (8-16); BLOOD UREA NITROGEN 14 MG/DL (7-18); CALCIUM LEVEL 8.7 MG/DL (8.5-10.1); CARBON DIOXIDE LEVEL 27 MEQ/L (21-32); CHLORIDE LEVEL 108 MEQ/L (98-107); CREATININE FOR GFR 0.85 MG/DL (0.70-1.30); GLOMERULAR FILTRATION RATE > 60.0 (>56); GLUCOSE, FASTING 91 MG/DL (70-100); POTASSIUM SERUM 4.3 MEQ/L (3.5-5.1); SODIUM LEVEL 142 MEQ/L (136-145)
== END ==
LOC: M LAB 09:05
DX: Z83.3 Family history of diabetes mellitus (principal)
CPT/HCPCS: 80048

== ENCOUNTER → 2017-10-24 | Outpatient (CLI) | payer OTHER ==
[~2017-10-24] MED LIST changes: -ALBU17IN2 INH; -ALBU83IN INH; -ANOR1AER IN; -ARNU1INH3 IN; -LIPI80TA PO; -PANT40TA2 PO; +PROHANCE 279.3MG/ML 15ML VIAL (A9576) As Ordered; +PROHANCE 279.3MG/ML 5ML VIAL (A9576) As Ordered
== END ==
LOC: M RAD 11:02
DX: N28.1 Cyst of kidney, acquired (principal)
CPT/HCPCS: A9576

== ENCOUNTER → 2017-11-09 | Outpatient (CLI) | payer OTHER ==
[~2017-11-09] MED LIST changes: +E-Z-PAQUE 96% w/w SUSP 176GM BTL As Ordered; -PROHANCE 279.3MG/ML 15ML VIAL (A9576) As Ordered; -PROHANCE 279.3MG/ML 5ML VIAL (A9576) As Ordered
== END ==
LOC: M RAD 08:00
DX: R10.84 Generalized abdominal pain (principal)
CPT/HCPCS: 74250

== ENCOUNTER → 2017-11-13 | Outpatient (CLI) | payer OTHER ==
[~2017-11-13] MED LIST changes: +E-Z-GAS II EFFERVESCENT PACKET (SODIUM BICARB./CITRIC ACID/SIMETHICONE) As Ordered; +E-Z-HD 98% w/w 340GM SUSP BTL As Ordered
== END ==
LOC: M RAD 10:15
DX: R13.10 Dysphagia, unspecified (principal)
CPT/HCPCS: 74220

== ENCOUNTER 2017-12-18 11:43 | Day surgery (SDC) | payer OTHER ==
[2017-12-18] MEDS: NS 1,000 ML IV (13:04)
[2017-12-18] MEDS ORDERED: fentaNYL 100 MCG/2 ML INJECTION (J3010) As Ordered (13:48)
[2017-12-18] MEDS ORDERED: LIDOCAINE 2% INJ 100 MG/5 ML SYRINGE As Ordered (13:48)
[2017-12-18] MEDS ORDERED: PROPOFOL 200 MG/20 ML VIAL As Ordered (13:48)
== END 2017-12-18 14:45 | disposition home or self-care (01) ==
LOC: M OPP 14:45
DX: R19.4 Change in bowel habit (principal); K57.30 Diverticulosis of large intestine without perforation or abscess without bleeding; K64.8 Other hemorrhoids; R13.12 Dysphagia, oropharyngeal phase; R12 Heartburn; K22.8 Other specified diseases of esophagus; K44.9 Diaphragmatic hernia without obstruction or gangrene; I10 Essential (primary) hypertension; E78.5 Hyperlipidemia, unspecified; K57.32 Diverticulitis of large intestine without perforation or abscess without bleeding; K21.9 Gastro-esophageal reflux disease without esophagitis; M19.90 Unspecified osteoarthritis, unspecified site; F32.9 Major depressive disorder, single episode, unspecified; G43.909 Migraine, unspecified, not intractable, without status migrainosus; F43.10 Post-traumatic stress disorder, unspecified; Z86.73 Personal history of transient ischemic attack (TIA), and cerebral infarction without residual deficits; J44.9 Chronic obstructive pulmonary disease, unspecified; R06.83 Snoring; G47.30 Sleep apnea, unspecified; Z96.651 Presence of right artificial knee joint; F17.210 Nicotine dependence, cigarettes, uncomplicated; Z91.018 Allergy to other foods; Z79.82 Long term (current) use of aspirin; Z79.899 Other long term (current) drug therapy
CPT/HCPCS: 45378

== ENCOUNTER → 2018-03-27 | Outpatient (CLI) | payer OTHER ==
[~2018-03-27] MED LIST changes: +ABIL10TA9 PO; +ALBU17IN2 INH; +ALBU83IN INH; +AMLO10TA5 PO; +ANOR1AER IN; +ARNU1INH3 IN; +ASPI81TA85 PO; +CYCL10TA PO; +DIAZ5TAB PO; -E-Z-GAS II EFFERVESCENT PACKET (SODIUM BICARB./CITRIC ACID/SIMETHICONE) As Ordered; -E-Z-HD 98% w/w 340GM SUSP BTL As Ordered; -E-Z-PAQUE 96% w/w SUSP 176GM BTL As Ordered; +GABA600T4 PO; +IBUP-1022 PO; +LIPI80TA PO; +NORCOTAB PO; +OXYC-517 PO; +PANT20TA2 PO; +PANT40TA3 PO; +TRAZ-160 PO; +ZOLO25TA PO
--- NOTE | 2018-03-27 10:44 | REP ---
Abnormal lung findings. Technique: Axial noncontrast images from the thoracic inlet to the upper abdomen with coronal and sagittal re-formations. Comparison: 09/29/2017, 03/28/2017. Findings: The bilateral lung greenfield are well-aerated and essentially clear. Few scattered small predominately subpleural nodules along the right lower lobe measuring 3 mm and along the left lower lobe measuring 5 mm as well as a small density inseparable from the right major fissure in the superior aspect of the right lower lobe and 4 mm density in the lingula are all stable compared to prior examinations through 03/28/2017. No new consolidation, significant nodule or mass lesion. No pleural effusion. No pneumothorax. Tracheobronchial tree is patent. Calcified left hilar lymph nodes are again identified and consistent with prior granulomatous disease. Thoracic aorta, pulmonary vasculature and heart/pericardium appear normal. Surrounding musculoskeletal structures are intact. Impression: 1. Small scattered noncalcified nodules and calcified hilar lymph nodes are again identified and stable through 03/28/2017. Findings likely represent chronic change related to prior granulomatous disease. 2. No significant acute mediastinal or pleuroparenchymal process. Electronically Signed by Edward Amaro MD 03/27/2018 10:35 A
== END ==
LOC: M RAD 10:03
PROVIDERS: ATTEND Internal Medicine Pulmonary Disease
DX: R91.8 Other nonspecific abnormal finding of lung field (principal)

== ENCOUNTER 2018-04-10 07:09 | Emergency (ER) | payer OTHER ==
[~2018-04-10] VITALS: Ht 172.7 cm; Wt 101.0 kg
[2018-04-10] MEDS ORDERED: PRED10TA2 (07:27)
[2018-04-10] MEDS ORDERED: LATANOPROST (07:27)
[2018-04-10] MEDS ORDERED: DIVA500T94 (07:27)
[2018-04-10] MEDS ORDERED: AMIT25TA (07:27)
[2018-04-10] MEDS ORDERED: BRIM0.2S13 (07:27)
[2018-04-10] MEDS ORDERED: TRAZ-160 (07:27)
[2018-04-10] MEDS ORDERED: VENL75TA2 (07:27)
[2018-04-10] MEDS ORDERED: CYCL10TA (07:27)
[2018-04-10 07:29] LABS: BASO # 0.1 10^3/uL (0.0-0.2); BASO % 0.7 % (0.0-1.0); EOS # 0.2 10^3/uL (0.0-0.50); EOS % 2.6 % (0.0-3.0); HEMATOCRIT 50.1 % (42.0-52.0); HEMOGLOBIN 16.7 g/dl (13.5-17.5); LYMPH # 2.5 10^3/uL (1.5-4.5); MEAN CORPUSCULAR HEMOGLOBIN 29.2 pg (27.0-33.0); MEAN CORPUSCULAR HGB CONC 33.3 g/dl (32.0-36.5); MEAN CORPUSCULAR VOLUME 87.6 fl (80.0-96.0); MONO # 0.5 10^3/uL (0.0-0.8); MONO % 6.6 % (0.0-5.0); NEUTROPHILS # 4.1 10^3/uL (1.8-7.7); NEUTROPHILS % 55.7 % (36.0-66.0); PLATELET COUNT, AUTOMATED 241 10^3/uL (150-450); RED BLOOD COUNT 5.72 10^6/uL (4.30-6.10); WHITE BLOOD COUNT 7.4 10^3/uL (4.0-10.0)
[2018-04-10] MEDS ORDERED: PANTOPRAZOLE 40MG INJ (PROTONIX) (C9113) IV ONE (07:30)
[2018-04-10] MEDS ORDERED: GI COCKTAIL 50ML BTL(HYOSCYAMINE/MAALOX/LIDOCAINE VISCOUS)(1:3:1) PO ONE (07:30)
[2018-04-10 07:40] LABS: INR 0.94; PROTHROMBIN TIME 12.7 SECONDS (12.1-14.4)
--- NOTE | 2018-04-10 07:51 | REP ---
Portable chest, 07:27 a.m., single AP view, the patient upright: Comparison is 07/16/2017. The lung greenfield are clear. The cardiac size is normal. The linda, mediastinum, and skeletal structures are unremarkable. Impression: Negative portable chest. There is no interval change. Electronically Signed by Haris Camejo MD 04/10/2018 07:43 A
[2018-04-10 08:00] LABS: ALBUMIN 4.1 GM/DL (3.2-5.2); ALT/SGPT 36 U/L (12-78); BILIRUBIN,DIRECT 0.1 MG/DL (0.0-0.2); BILIRUBIN,TOTAL 0.5 MG/DL (0.2-1.0); BLOOD UREA NITROGEN 17 MG/DL (7-18); CALCIUM LEVEL 8.7 MG/DL (8.5-10.1); CARBON DIOXIDE LEVEL 29 MEQ/L (21-32); CHLORIDE LEVEL 101 MEQ/L (98-107); CK-MB VALUE MASS < 1.0 NG/ML (<3.6); CPK CREATINE PHOSPHOKINASE 59 U/L (39-308); CREATININE FOR GFR 1.03 MG/DL (0.70-1.30); ETHYL ALCOHOL (ETHANOL) 0.003 % (0.000-0.010); GLOMERULAR FILTRATION RATE > 60.0 (>56); GLUCOSE, FASTING 126 MG/DL (70-100); LIPASE 92 U/L (73-393); MB/CK RELATIVE INDEX 1.69 (< OR =4); POTASSIUM SERUM 3.7 MEQ/L (3.5-5.1); SODIUM LEVEL 137 MEQ/L (136-145); TOTAL PROTEIN 7.5 GM/DL (6.4-8.2); TROPONIN I < 0.02 NG/ML (< 0.10)
[2018-04-10 11:38] LABS: MB/CK RELATIVE INDEX 6.15 (< OR =4); TROPONIN I 0.83 NG/ML (< 0.10)
[2018-04-10] MEDS ORDERED: HEPARIN DRIP 25,000 UNITS in APPROPRIATE DILUENT 1 EA IV SCH (12:39)
[2018-04-10] MEDS ORDERED: HEPARIN SOD (PORCINE) 5000 UNITS/ML VIAL IV ONE (12:45)
[2018-04-10] MEDS ORDERED: NITROGLYCERIN 2% OINT 1 GM *U/D* PKT TOP ONE (12:45)
[2018-04-10 13:22] LABS: MB/CK RELATIVE INDEX 8.97 (< OR =4); TROPONIN I 2.27 NG/ML (< 0.10)
[2018-04-10 13:26] VITALS: BP 110/74
--- NOTE | 2018-04-10 19:06 | ECGEPIP ---
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
--- NOTE | 2018-04-10 19:08 | ECGEPIP ---
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
== END 2018-04-10 13:29 | disposition short-term general hospital (02) ==
LOC: M ED 07:09
DX: I20.0 Unstable angina (principal); I10 Essential (primary) hypertension; J44.9 Chronic obstructive pulmonary disease, unspecified; K21.9 Gastro-esophageal reflux disease without esophagitis
CPT/HCPCS: 36415; 71045; 80048; 80076; 82550; 82553; 83690; 85025; 85610; 85730; 93005; 93041; 94760; 96374; 96375; 99285; C9113; G0480

== ENCOUNTER → 2018-05-16 | Outpatient (REF) | payer OTHER ==
[~2018-05-16] MED LIST changes: +AMIT25TA; +BRIM0.2S13; +CYCL10TA; +DIVA500T94; +LATANOPROST; +PRED10TA2; +TRAZ-160; +VENL75TA2
[2018-05-16 13:26] LABS: ALBUMIN 3.8 GM/DL (3.2-5.2); ALT/SGPT 33 U/L (12-78); BILIRUBIN,TOTAL 0.6 MG/DL (0.2-1.0); BLOOD UREA NITROGEN 14 MG/DL (7-18); CALCIUM LEVEL 8.5 MG/DL (8.5-10.1); CARBON DIOXIDE LEVEL 28 MEQ/L (21-32); CHLORIDE LEVEL 106 MEQ/L (98-107); CHOLESTEROL LEVEL 213 MG/DL (<200); CHOLESTEROL RISK RATIO 5.461 (<5); CREATININE FOR GFR 0.86 MG/DL (0.70-1.30); GLOMERULAR FILTRATION RATE > 60.0 (>56); GLUCOSE, FASTING 91 MG/DL (70-100); HDL CHOLESTEROL 39 MG/DL (>40); LDL CHOLESTEROL 159 MG/DL (<100); NON-HDL-C 174 MG/DL; POTASSIUM SERUM 4.3 MEQ/L (3.5-5.1); SODIUM LEVEL 142 MEQ/L (136-145); TOTAL PROTEIN 6.7 GM/DL (6.4-8.2); TRIGLYCERIDES LEVEL 77 MG/DL (<150)
[2018-05-16 13:48] LABS: HEMOGLOBIN A1c 6.5 %
== END ==
LOC: M LABDRAW1 12:08
PROVIDERS: ATTEND Family Medicine
DX: E78.5 Hyperlipidemia, unspecified (principal); R73.03 Prediabetes; I10 Essential (primary) hypertension

== ENCOUNTER 2018-10-20 16:11 | Emergency (ER) | payer OTHER ==
[~2018-10-20] VITALS: Ht 172.7 cm; Wt 100.9 kg
[~2018-10-20 16:11] MED LIST changes: +HYDR-3715 PO; -NORCOTAB PO; -TRAZ-160; -TRAZ-160 PO; +TRAZ-252; +TRAZ-252 PO
[2018-10-20] MEDS ORDERED: GABA-843 (16:26)
[2018-10-20] MEDS ORDERED: MORP-69 (16:26)
[2018-10-20] MEDS ORDERED: INCR1INH (16:26)
[2018-10-20] MEDS ORDERED: ALBU8.5H (16:26)
[2018-10-20] MEDS ORDERED: ARIP1TAB6 (16:26)
[2018-10-20] MEDS ORDERED: VENL37TA (16:26)
[2018-10-20] MEDS ORDERED: LIDO5DIS41 TD (17:23)
[2018-10-20] MEDS ORDERED: KETOROLAC 60 MG/2 ML VIAL (J1885) IM ONE (17:30)
[2018-10-20] MEDS ORDERED: tiZANidine 4 MG TAB PO ONE (17:30)
[2018-10-20] MEDS ORDERED: LIDOCAINE 5% (LIDODERM) PATCH TD ONE (17:30)
[2018-10-20 17:45] VITALS: BP 141/87
[2018-10-20] MEDS ORDERED: **NOTE PATIENT COMMENT** MISC XX SCH (21:00)
--- NOTE | 2018-10-21 10:51 | REP ---
The right shoulder three views : There is no fracture or dislocation. Mineralization and joint spaces are normal. There are no calcifications or foreign bodies. Impression: Negative right shoulder . Electronically Signed by Haris Camejo MD 10/21/2018 08:51 A
== END 2018-10-20 17:51 | disposition home or self-care (01) ==
LOC: M ED 16:11
DX: S46.811A Strain of other muscles, fascia and tendons at shoulder and upper arm level, right arm, initial encounter (principal); W01.198A Fall on same level from slipping, tripping and stumbling with subsequent striking against other object, initial encounter; Y92.098 Other place in other non-institutional residence as the place of occurrence of the external cause; I10 Essential (primary) hypertension; E78.5 Hyperlipidemia, unspecified; F32.9 Major depressive disorder, single episode, unspecified; J44.9 Chronic obstructive pulmonary disease, unspecified; G47.30 Sleep apnea, unspecified; M54.9 Dorsalgia, unspecified; F17.200 Nicotine dependence, unspecified, uncomplicated; Z91.018 Allergy to other foods; Z79.899 Other long term (current) drug therapy; Z79.82 Long term (current) use of aspirin; Z79.891 Long term (current) use of opiate analgesic; Z79.51 Long term (current) use of inhaled steroids
CPT/HCPCS: 73030; 96372; 99284; J1885

== ENCOUNTER → 2018-10-26 | Outpatient (CLI) | payer OTHER ==
[~2018-10-26] MED LIST changes: +ALBU8.5H; +ARIP1TAB6; +GABA-843; +INCR1INH; +LIDO5DIS41 TD; +MORP-69; +VENL37TA
[2018-10-26 09:23] LABS: BLOOD UREA NITROGEN 22 MG/DL (7-18); CALCIUM LEVEL 9.2 MG/DL (8.5-10.1); CARBON DIOXIDE LEVEL 32 MEQ/L (21-32); CHLORIDE LEVEL 102 MEQ/L (98-107); CREATININE FOR GFR 0.92 MG/DL (0.70-1.30); GLOMERULAR FILTRATION RATE > 60.0 (>56); GLUCOSE, FASTING 97 MG/DL (70-100); POTASSIUM SERUM 4.7 MEQ/L (3.5-5.1); PROSTATIC SPECIFIC AG MONITOR 0.81 NG/ML (< 4.00); SODIUM LEVEL 138 MEQ/L (136-145)
[2018-10-26 09:31] LABS: CREATININE, URINE 90.8 MG/DL; MALB URINE SIEMENS 30.4 MG/L; MAU/CREAT RATIO 33.4 MCG/MG (0.0-30.0)
[2018-10-26 10:29] LABS: HEMOGLOBIN A1c 6.1 %
== END ==
LOC: M LAB 07:47
PROVIDERS: ATTEND Family Medicine
DX: E11.9 Type 2 diabetes mellitus without complications (principal); I10 Essential (primary) hypertension; N39.9 Disorder of urinary system, unspecified

== ENCOUNTER → 2018-11-14 | Outpatient (REF) | payer OTHER | LOC: M SFHCCLAY 14:38 | PROVIDERS: ATTEND Family Medicine | DX: R06.89 Other abnormalities of breathing (principal) ==

== ENCOUNTER → 2019-01-03 | Outpatient (CLI) | payer OTHER ==
[2019-01-03 11:08] LABS: BASO # 0.1 10^3/uL (0.0-0.2); BASO % 0.9 % (0.0-1.0); EOS # 0.1 10^3/uL (0.0-0.5); EOS % 1.4 % (0.0-3.0); LYMPH # 2.1 10^3/uL (1.5-5.0); LYMPH % 27.8 % (24.0-44.0); MEAN CORPUSCULAR HGB CONC 32.7 g/dl (32.0-36.5); MEAN CORPUSCULAR VOLUME 88.6 fl (80.0-96.0); MONO # 0.5 10^3/uL (0.0-0.8); MONO % 6.2 % (0.0-5.0); NEUTROPHILS # 4.8 10^3/uL (1.5-8.5); NEUTROPHILS % 63.4 % (36.0-66.0); PLATELET COUNT, AUTOMATED 277 10^3/uL (150-450); RED BLOOD COUNT 5.97 10^6/uL (4.30-6.10); WHITE BLOOD COUNT 7.6 10^3/uL (4.0-10.0)
[2019-01-03 11:16] LABS: HEMATOCRIT 52.9 % (42.0-52.0); HEMOGLOBIN 17.3 g/dl (13.5-17.5)
[2019-01-03 11:35] LABS: BLOOD UREA NITROGEN 13 MG/DL (7-18); CARBON DIOXIDE LEVEL 34 MEQ/L (21-32); CHLORIDE LEVEL 102 MEQ/L (98-107); CREATININE FOR GFR 0.84 MG/DL (0.70-1.30); GLOMERULAR FILTRATION RATE > 60.0 (>56); GLUCOSE, FASTING 90 MG/DL (70-100); POTASSIUM SERUM 4.7 MEQ/L (3.5-5.1); SODIUM LEVEL 139 MEQ/L (136-145)
[2019-01-03 11:36] LABS: ALT/SGPT 38 U/L (12-78); BILIRUBIN,TOTAL 0.4 MG/DL (0.2-1.0); C REACTIVE PROTEIN QUANTITATIV < 0.30 MG/DL (0.00-0.30); CALCIUM LEVEL 9.6 MG/DL (8.5-10.1); TOTAL PROTEIN 7.6 GM/DL (6.4-8.2)
[2019-01-03 11:43] LABS: ERYTHROCYTE SEDIMENTATION RATE 1 mm/hr (0-20)
[2019-01-08 00:06] LABS: ANCA-ATYPICAL <1:20 titer (Neg:<1:20); ANGIOTENSIN 1 CONVERTING ENZYM 51 U/L (14-82); ANTINUCLEAR ANTIBODIES DIRECT Negative (Negative); CYTOPLASMIC NEUTROP AB ANCA-C <1:20 titer (Neg:<1:20); LYSOZYME 7.2 ug/mL (3.0-12.8); Lyme Disease IgG/IgM Antibodie <0.91 ISR (0.00-0.90); Lyme Disease IgM Ab Quantitati <0.80 index (0.00-0.79); PERINUCLEAR AB ANCA-P <1:20 titer (Neg:<1:20)
== END ==
LOC: M LAB 08:52
PROVIDERS: ATTEND Ophthalmology Retina Specialist
DX: H35.063 Retinal vasculitis, bilateral (principal)

== ENCOUNTER → 2019-08-20 | Outpatient (CLI) | payer MEDICARE, MEDICAID ==
[~2019-08-20] MED LIST changes: +CYCL-707; +CYCL-707 PO; -CYCL10TA; -CYCL10TA PO
[2019-08-20 10:09] LABS: MALB URINE SIEMENS 43.7 MG/L; MAU/CREAT RATIO 26.6 MCG/MG (0.0-30.0)
[2019-08-20 10:23] LABS: BLOOD UREA NITROGEN 17 MG/DL (7-18); CARBON DIOXIDE LEVEL 33 MEQ/L (21-32); CHLORIDE LEVEL 103 MEQ/L (98-107); CHOLESTEROL LEVEL 153 MG/DL (<200); CREATININE FOR GFR 0.91 MG/DL (0.70-1.30); GLOMERULAR FILTRATION RATE > 60.0 (>56); GLUCOSE, FASTING 95 MG/DL (70-100); HDL CHOLESTEROL 50 MG/DL (>40); LDL CHOLESTEROL 91 MG/DL (<100); NON-HDL-C 103 MG/DL; POTASSIUM SERUM 4.5 MEQ/L (3.5-5.1); SODIUM LEVEL 139 MEQ/L (136-145); TRIGLYCERIDES LEVEL 59 MG/DL (<150)
[2019-08-20 10:26] LABS: HEMOGLOBIN A1c 6.8 %
== END ==
LOC: M LAB 08:53
PROVIDERS: ATTEND Family Medicine
DX: E11.9 Type 2 diabetes mellitus without complications (principal)

== ENCOUNTER 2020-02-07 10:18 | Inpatient (IN) | payer MEDICARE, MEDICAID ==
[~2020-02-07] VITALS: Ht 172.7 cm; Wt 98.7 kg
[~2020-02-07 10:18] MED LIST changes: -ALBU8.5H; +ALBU8.5H INH; -AMLO10TA5 PO; +AMLO1TAB25 PO; -ASPI81TA85 PO; +ASPI81TA86 PO; -CYCL-707; -INCR1INH; +INCR1INH INH; -PANT20TA2 PO; +PANT20TA6 PO; +PANT40TA29 PO; -PANT40TA3 PO
[2020-02-07] MEDS ORDERED: PRAZ1CAP PO (10:30)
[2020-02-07] MEDS ORDERED: HYSI1TAB4 PO (10:30)
[2020-02-07] MEDS ORDERED: PRAZ2CAP PO (10:30)
[2020-02-07] MEDS ORDERED: NARC1SPR NARES (10:30)
[2020-02-07] MEDS ORDERED: methylPREDNISolone 125MG 2ML VIAL IV ONE (10:45)
[2020-02-07 11:19] LABS: BASO # 0.1 10^3/uL (0.0-0.2); BASO % 0.6 % (0.0-1.0); EOS # 0.1 10^3/uL (0.0-0.5); EOS % 1.6 % (0.0-3.0); HEMATOCRIT 48.2 % (42.0-52.0); HEMOGLOBIN 15.5 g/dl (13.5-17.5); LYMPH # 2.1 10^3/uL (1.5-5.0); LYMPH % 23.5 % (24.0-44.0); MEAN CORPUSCULAR HEMOGLOBIN 28.6 pg (27.0-33.0); MEAN CORPUSCULAR HGB CONC 32.2 g/dl (32.0-36.5); MEAN CORPUSCULAR VOLUME 88.9 fl (80.0-96.0); MONO # 0.6 10^3/uL (0.0-0.8); MONO % 6.9 % (0.0-5.0); NEUTROPHILS % 67.1 % (36.0-66.0); PLATELET COUNT, AUTOMATED 232 10^3/uL (150-450); RED BLOOD COUNT 5.42 10^6/uL (4.30-6.10)
--- NOTE | 2020-02-07 11:30 | REP ---
INDICATION: DYSPNEA/COUGH. COMPARISON: April 10, 2018. TECHNIQUE: Portable upright AP chest radiograph. FINDINGS: There is mild linear platelike atelectasis versus fibrosis in the left base behind the heart. There appears to be a small air-containing bullous in the right base. This is unchanged. Lung greenfield are otherwise clear. Right hemidiaphragm is slightly elevated. Pleural angles are sharp. Oxygen delivery tubing is seen.. Monitoring electrodes are seen. No significant bony abnormality. IMPRESSION: Linear fibrosis versus platelike atelectasis left base behind the heart. Slightly elevated right hemidiaphragm. Otherwise no acute disease.. <Electronically signed by Bhanu Longo > 02/07/20 [id number]
[2020-02-07 11:44] LABS: ALT/SGPT 25 U/L (12-78); BLOOD UREA NITROGEN 11 MG/DL (7-18); CALCIUM LEVEL 8.7 MG/DL (8.5-10.1); CARBON DIOXIDE LEVEL 35 MEQ/L (21-32); CHLORIDE LEVEL 97 MEQ/L (98-107); CREATININE FOR GFR 0.74 MG/DL (0.70-1.30); GLOMERULAR FILTRATION RATE > 60.0 (>56); GLUCOSE, FASTING 100 MG/DL (70-100); POTASSIUM SERUM 3.9 MEQ/L (3.5-5.1); SODIUM LEVEL 135 MEQ/L (136-145)
[2020-02-07 11:45] LABS: ALBUMIN 3.8 GM/DL (3.2-5.2); BILIRUBIN,DIRECT 0.2 MG/DL (0.0-0.2); BILIRUBIN,TOTAL 0.6 MG/DL (0.2-1.0); NT-PRO BNP 46 PG/ML (<125); TOTAL PROTEIN 6.9 GM/DL (6.4-8.2)
[2020-02-07] MEDS: IPRATROPIUM 0.5MG/ALBUTEROL 2.5MG INH SOL UD 3ML (DUONEB) NEB SCH ×3 (13:01→13:52)
[2020-02-07] MEDS ORDERED: ISOVUE-370 76% 100ML VIAL As Ordered ONE (13:51)
--- NOTE | 2020-02-07 14:55 | REP ---
INDICATION: hypoxia r/o PE. COMPARISON: 10/14/2019 as well as other prior exams. TECHNIQUE: CT angiogram chest performed following the intravenous administration of 100 cc of Isovue 370. Sagittal and coronal reconstruction images are performed. Study is limited due to patient motion. FINDINGS: Lungs: A band of density in the right middle lobe has improved since 10/14/2019. There are dependent atelectatic changes in the right lower lobe. There is calcified granuloma in the left apex. There are also mild atelectatic changes in the left lung base. Mediastinum: No adenopathy. Pulmonary arteries: No gross evidence of pulmonary embolism. Evaluation of the pulmonary arteries is limited due to excessive motion. Kristina: No adenopathy. Axilla: No adenopathy. Pleura: No effusion. Heart: Not enlarged. Thoracic aorta: No aneurysm or dissection. Upper abdominal structures: There are calcified granulomas in the spleen. There is a small cyst in the upper pole the right kidney. Visualized osseous structures: There is degenerative changes of the spine without compression deformity. IMPRESSION: No gross evidence of pulmonary embolism. Evaluation of the pulmonary arteries is limited due to excessive motion.No infiltrate seen. <Electronically signed by Haris Uribe > 02/07/20 [id number]
[2020-02-07] MEDS ORDERED: DOXYCYCLINE HYCLATE 100 MG in D5W MINI-BAG PLUS 100 ML IV SCH (16:30)
[2020-02-07] MEDS ORDERED: LEVALBUTEROL 1.25 MG/0.5 ML CONCENTRATE NEB INH PRN (16:30)
[2020-02-07] MEDS ORDERED: FLUT1INH3 INH (17:07)
[2020-02-07] MEDS ORDERED: DULO1CAP6 PO (17:07)
[2020-02-07] MEDS ORDERED: ASPI325T56 PO (17:07)
[2020-02-07] MEDS ORDERED: XALA0.007 OU (17:07)
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
[2020-02-07] MEDS: LEVALBUTEROL 1.25 MG/0.5 ML CONCENTRATE NEB INH SCH (20:00)
[2020-02-07] MEDS ORDERED: ENOXAPARIN 100MG/1ML SYRINGE (J1650 PER 10MG) SC SCH (21:00)
[2020-02-07 22:17] VITALS: BP 135/85
[2020-02-07] MEDS: DOXYCYCLINE HYCLATE 100 MG in D5W MINI-BAG PLUS 100 ML IV SCH (23:15)
[2020-02-07] MEDS: methylPREDNISolone 125MG 2ML VIAL IV SCH (23:16)
[2020-02-08] VITALS: BP 139/74
[2020-02-08] MEDS: LEVALBUTEROL 1.25 MG/0.5 ML CONCENTRATE NEB INH SCH ×7 (00:42→23:28)
[2020-02-08 00:50] LABS: CK-MB VALUE MASS 1.6 NG/ML (<3.6); CPK CREATINE PHOSPHOKINASE 111 U/L (39-308); MB/CK RELATIVE INDEX 1.44 (< OR =4); TROPONIN I < 0.02 NG/ML (< 0.10)
[2020-02-08 04:00] VITALS: BP 126/65
[2020-02-08 05:12] LABS: HEMATOCRIT 49.6 % (42.0-52.0); MEAN CORPUSCULAR HEMOGLOBIN 28.8 pg (27.0-33.0); MEAN CORPUSCULAR HGB CONC 32.3 g/dl (32.0-36.5); MEAN CORPUSCULAR VOLUME 89.2 fl (80.0-96.0); PLATELET COUNT, AUTOMATED 236 10^3/uL (150-450); RED BLOOD COUNT 5.56 10^6/uL (4.30-6.10)
[2020-02-08] MEDS: methylPREDNISolone 125MG 2ML VIAL IV SCH ×2 (05:32→17:48)
[2020-02-08 05:45] LABS: BLOOD UREA NITROGEN 15 MG/DL (7-18); CALCIUM LEVEL 9.1 MG/DL (8.5-10.1); CARBON DIOXIDE LEVEL 36 MEQ/L (21-32); CHLORIDE LEVEL 98 MEQ/L (98-107); CK-MB VALUE MASS 1.9 NG/ML (<3.6); CPK CREATINE PHOSPHOKINASE 126 U/L (39-308); CREATININE FOR GFR 0.77 MG/DL (0.70-1.30); GLOMERULAR FILTRATION RATE > 60.0 (>56); GLUCOSE, FASTING 161 MG/DL (70-100); MB/CK RELATIVE INDEX 1.51 (< OR =4); POTASSIUM SERUM 4.4 MEQ/L (3.5-5.1); SODIUM LEVEL 135 MEQ/L (136-145); TROPONIN I < 0.02 NG/ML (< 0.10)
[2020-02-08 08:00] VITALS: BP 130/64
--- NOTE | 2020-02-08 08:49 | IPNPDOC ---
Date Seen The patient was seen on 02/08/20. Progress Note Subjective: Patient's breathing is much improved. He denies chest pain, pressure, tightness, fever, chills, still with productive cough of green brown sputum. No issues overnight On empiric Lovenox for probable PE with recommendations to repeat CT chest if no improvement with his respiratory status. PHYSICAL EXAMINATION: VITAL SIGNS: See below GENERAL APPEARANCE: Comfortable no pallor., No distress, lying down his left side no tracheal deviation disheveled HEENT:. No JVD, thyromegaly., Moist mucous membranes disheveled appearing CARDIOVASCULAR: S1, S2, sinus rhythm LUNGS: Diminished, prolonged expiration faint expiratory wheezing ABDOMEN: Obese, soft, nontender, nondistended, positive bowel sounds EXTREMITIES: Trace edema bilaterally EKG sinus rhythm, ventricular rate 54, intraventricular conduction delay LABORATORY DATA: See below. IMAGING: See below MICROBIOLOGY: Please see below. ASSESSMENT: .54-year-old male with history of COPD, follows with Dr. Elena's outpatient, n ot oxygen or steroid dependent, hypertension, PTSD, alcohol abuse flor on CPAP was in his usual state of health until a week ago when he woke up short of breath without chest pain, pressure, tightness with cough productive of moore green phlegm without fever, chills, and despite every 2 hourly nebulizers and inhalers at home. Has had no improvement. He had a routine appointment with Dr. Elena today for the past week he's been having dyspnea on exertion and generalized weakness very heartbreaking catch his breath. He was found to be hypoxic, 87% on room air at the office and he was sent to the emergency room for further evaluation. CT angiography of the chest was negative. EKG showed no acute ST-T wave changes, sinus rhythm, ventricular rate of 54, old inferior wall changes. Hospitalist was called to admit the patient for possible COPD exacerbation and rule out pulmonary embolism despite CT of the chest being negative for PE, as read by the radiologist, Dr. Elena was concerned about a PE and recommended anticoagulation for now until appropriate. Repeat one can be done in the morning. Patient was afebrile. No complaints of chills at home Covid was negative. Hospitalist was asked to admit the patient for COPD exacerbation, rule out PE . Acute hypoxic respiratory failure, rule out pulmonary embolism . Acute COPD exacerbation , Hypertension , Depression PTSD Obstructive sleep apnea on CPAP Glaucoma Plan since patient improved on Solu-Medrol, no need to repeat CT chest with con trast. DC Lovenox . Retransfer to [facility] floor transitioned to by mouth prednisone with long taper starting tomorrow. Discharge plans either Monday or Monday. Continue antibiotics, nebulizers, suppl emental oxygen and ambulate on room air VS, I&O, 24H, Fishbone Vital Signs/I&O Vital Signs Date Time Temp Pulse Resp B/P (MAP) Pulse Ox O2 Delivery O2 Flow Rate FiO2 02/08/20 08:00 97.5 90 18 130/64 (86) 92 Nasal Cannula 3.0 I&O- Last 24 Hours up to 6 AM 02/08/20 06:00 Intake Total 0 ml Output Total 900 ml Balance -900 ml Laboratory Data 24H LABS Laboratory Tests 2 02/07/20 10:38: Immature Granulocyte % (Auto) 0.3, Neutrophils (%) (Auto) 67.1H, Lymphocytes (%) (Auto) 23.5L, Monocytes (%) (Auto) 6.9H, Eosinophils (%) (Auto) 1.6, Basophils (%) (Auto) 0.6, Neutrophils # (Auto) 6.0, Lymphocytes # (Auto) 2.1, Monocytes # (Auto) 0.6, Eosinophils # (Auto) 0.1, Basophils # (Auto) 0.1, Nucleated Red Blood Cells % (auto) 0.0, Anion Gap 3L, Glomerular Filtration Rate > 60.0, Lactic Acid Level 0.6, Calcium Level 8.7, Total Bilirubin 0.6, Direct Bilirubin 0.2, Aspartate Amino Transf (AST/SGOT) 8, Alanine Aminotransferase (ALT/SGPT) 25, Alkaline Phosphatase 83, KB-Zzk-Q-Type Natriuretic Peptide 46, Total Protein 6.9, Albumin 3.8, Albumin/Globulin Ratio 1.2 02/07/20 10:55: POC pH (Misc Panel) 7.359, POC Base Excess (Misc Panel) 7.0H, POC Saturated Percent O2 (Misc) 83L, POC pO2 (Misc Panel) 51.0L, POC pCO2 (Misc Panel) 58.0H, POC HCO3 (Misc Panel) 32.7H, POC Total CO2 (Misc Panel) 34.0H 02/08/20 00:11: Total Creatine Kinase 111, Creatine Kinase MB 1.6, Creatine Kinase MB Relative Index 1.44, Troponin I < 0.02 02/08/20 04:52: Nucleated Red Blood Cells % (auto) 0.0, Anion Gap 1L, Glomerular Filtration Rate > 60.0, Calcium Level 9.1, Total Creatine Kinase 126, Creatine Kinase MB 1.9, Creatine Kinase MB Relative Index 1.51, Troponin I < 0.02 CBC/BMP Laboratory Tests 02/07/20 10:38 02/08/20 04:52 Microbiology Microbiology 02/07/20 Respiratory Virus Panel (PCR) (NAN) - Final, Complete 02/07/20 Blood Culture, Received Pending 02/07/20 Blood Culture, Received Pending RADHA LAROSE MD Feb 08, 2020 08:49
--- NOTE | 2020-02-08 09:31 | ECGEPIP ---
[facility] - ED Test Date: 2020-02-07 Pat Name: SHAYNA THOMSON Department: Room: [facility]02 Gender: Male Tonguer: angela : 1965 Requested By: Luther Zamarripa Order Number: [id number] Reading MD: Roula Hess Measurements Intervals Strong Rate: 59 P: 38 IL: 185 QRS: -79 QRSD: 105 T: 22 QT: 405 QTc: 403 Interpretive Statements SINUS BRADYCARDIA INFERIOR MYOCARDIAL INFARCTION, OF INDETERMINATE AGE ANTEROSEPTAL MYOCARDIAL INFARCTION, OF INDETERMINATE AGE Electronically Signed on 02-08-2020 9:31:10 EST by Roula Hess
[2020-02-08] MEDS: ENOXAPARIN 40MG/0.4ML SYRINGE (J1650 PER 10MG) SC SCH (09:33)
[2020-02-08] MEDS: DOXYCYCLINE HYCLATE 100 MG in D5W MINI-BAG PLUS 100 ML IV SCH ×2 (11:12→22:32)
[2020-02-08 12:42] LABS: CK-MB VALUE MASS 1.3 NG/ML (<3.6); CPK CREATINE PHOSPHOKINASE 125 U/L (39-308); MB/CK RELATIVE INDEX 1.04 (< OR =4); TROPONIN I < 0.02 NG/ML (< 0.10)
[2020-02-08 13:56] VITALS: BP 143/76
[2020-02-08 22:00] VITALS: BP 130/64
[2020-02-08] MEDS ORDERED: NORCO, ANEXSIA 5/325MG TABLET (HYDROcodone/ACETAMINOPHEN) PO PRN (22:15)
[2020-02-09] MEDS: LEVALBUTEROL 1.25 MG/0.5 ML CONCENTRATE NEB INH SCH ×3 (03:08→11:22)
[2020-02-09] MEDS: methylPREDNISolone 125MG 2ML VIAL IV SCH (05:44)
[2020-02-09 06:00] VITALS: BP 142/83
[2020-02-09 06:53] LABS: HEMATOCRIT 49.2 % (42.0-52.0); HEMOGLOBIN 16.1 g/dl (13.5-17.5); MEAN CORPUSCULAR HEMOGLOBIN 29.1 pg (27.0-33.0); MEAN CORPUSCULAR HGB CONC 32.7 g/dl (32.0-36.5); MEAN CORPUSCULAR VOLUME 88.8 fl (80.0-96.0); PLATELET COUNT, AUTOMATED 248 10^3/uL (150-450); RED BLOOD COUNT 5.54 10^6/uL (4.30-6.10); WHITE BLOOD COUNT 20.2 10^3/uL (4.0-10.0)
[2020-02-09 07:11] LABS: BLOOD UREA NITROGEN 20 MG/DL (7-18); CALCIUM LEVEL 9.4 MG/DL (8.5-10.1); CARBON DIOXIDE LEVEL 34 MEQ/L (21-32); CHLORIDE LEVEL 99 MEQ/L (98-107); CREATININE FOR GFR 0.83 MG/DL (0.70-1.30); GLOMERULAR FILTRATION RATE > 60.0 (>56); GLUCOSE, FASTING 119 MG/DL (70-100); POTASSIUM SERUM 4.4 MEQ/L (3.5-5.1); SODIUM LEVEL 136 MEQ/L (136-145)
[2020-02-09] MEDS ORDERED: PRED50TA PO (08:45)
[2020-02-09] MEDS ORDERED: BACI1CAP PO (08:46)
[2020-02-09] MEDS ORDERED: DOXY-350 PO (08:46)
[2020-02-09] MEDS ORDERED: PRED10TA2 PO (08:47)
[2020-02-09] MEDS: ENOXAPARIN 40MG/0.4ML SYRINGE (J1650 PER 10MG) SC SCH (09:31)
--- NOTE | 2020-02-09 10:32 | IPNPDOC ---
Date Seen The patient was seen on 02/09/20. Progress Note Subjective: , Comfortable on room air. Says he has no dyspnea with occasional faint wheezing but feels closer to baseline. , No fever, chills, cough, dyspnea on exertion PHYSICAL EXAMINATION: VITAL SIGNS: See below GENERAL APPEARANCE: Awake, alert, oriented 3, no distress HEENT:. No JVD, thyromegaly., Moist mucous membranes disheveled appearing CARDIOVASCULAR: S1, S2, sinus rhythm LUNGS: Diminished, prolonged expiration faint expiratory wheezing ABDOMEN: Obese, soft, nontender, nondistended, positive bowel sounds EXTREMITIES: Trace edema bilaterally EKG sinus rhythm, ventricular rate 54, intraventricular conduction delay LABORATORY DATA: See below. IMAGING: See below MICROBIOLOGY: Please see below. ASSESSMENT: .54-year-old male with history of COPD, follows with Dr. Elena's outpatient, not oxygen or steroid dependent, hypertension, PTSD, alcohol abuse flor on CPAP was in his usual state of health until a week ago when he woke up short of breath without chest pain, pressure, tightness with cough productive of moore green phlegm without fever, chills, and despite every 2 hourly nebulizers and inhalers at home. Has had no improvement. He had a routine appointment with Dr. Elena today for the past week he's been having dyspnea on exertion and generalized weakness very heartbreaking catch his breath. He was found to be hypoxic, 87% on room air at the office and he was sent to the emergency room for further evaluation. CT angiography of the chest was negative. EKG showed no acute ST-T wave changes, sinus rhythm, ventricular rate of 54, old inferior wall changes. Hospitalist was called to admit the patient for possible COPD exacerbation and rule out pulmonary embolism despite CT of the chest being negative for PE, as read by the radiologist, Dr. Elena was concerned about a PE and recommended anticoagulation for now until appropriate. Repeat one can be done in the morning. Patient was afebrile. No complaints of chills at home Covid was negative. Hospitalist was asked to admit the patient for COPD exacerbation, rule out PE . Acute hypoxic respiratory failure, rule out pulmonary embolism . Acute COPD exacerbation , Hypertension , Depression PTSD Obstructive sleep apnea on CPAP Glaucoma Plan DC IV Solu-Medrol. Prednisone twice a day, doxycycline DC oxygen if O2 sat is greater than 88% with ambulation on room air Be discharged home if stable off oxygen this afternoon with a long tAper of steroids VS, I&O, 24H, [place] Vital Signs/I&O Vital Signs Date Time Temp Pulse Resp B/P (MAP) Pulse Ox O2 Delivery O2 Flow Rate FiO2 02/09/20 06:00 97.7 63 17 142/83 (102) 92 Nasal Cannula 2.0 I&O- Last 24 Hours up to 6 AM 02/09/20 06:00 Intake Total 1760 ml Output Total 550 ml Balance 1210 ml Laboratory Data 24H LABS Laboratory Tests 2 02/08/20 11:36: Total Creatine Kinase 125, Creatine Kinase MB 1.3, Creatine Kinase MB Relative Index 1.04, Troponin I < 0.02 02/09/20 06:26: Nucleated Red Blood Cells % (auto) 0.0, Anion Gap 3L, Glomerular Filtration Rate > 60.0, Calcium Level 9.4 CBC/BMP Laboratory Tests 02/09/20 06:26 Microbiology Microbiology 02/07/20 Respiratory Virus Panel (PCR) (NAN) - Final, Complete 02/07/20 Blood Culture - Preliminary, Resulted No growth after 24 hours . All specim... 02/07/20 Blood Culture - Preliminary, Resulted No growth after 24 hours . All specim... RADHA LAROSE MD Feb 09, 2020 10:32
[2020-02-09] MEDS: DOXYCYCLINE HYCLATE 100 MG in D5W MINI-BAG PLUS 100 ML IV SCH (11:18)
[2020-02-09] MEDS ORDERED: predniSONE 20 MG TAB PO SCH (21:00)
== END 2020-02-09 12:36 | disposition home or self-care (01) | DRG 189 ==
LOC: M ED 10:18 → M ED INP 16:17 → M PCU 22:23 → M MSPAV 02-08 13:55
PROVIDERS: ADMIT General Practice; ATTEND General Practice
DX: J96.01 Acute respiratory failure with hypoxia (principal); J44.1 Chronic obstructive pulmonary disease with (acute) exacerbation; I10 Essential (primary) hypertension; F32.9 Major depressive disorder, single episode, unspecified; F43.10 Post-traumatic stress disorder, unspecified; G47.33 Obstructive sleep apnea (adult) (pediatric); H40.9 Unspecified glaucoma; F10.10 Alcohol abuse, uncomplicated; F17.200 Nicotine dependence, unspecified, uncomplicated; Z79.82 Long term (current) use of aspirin; Z79.899 Other long term (current) drug therapy; Z91.018 Allergy to other foods; Z96.652 Presence of left artificial knee joint; Z20.828 Contact with and (suspected) exposure to other viral communicable diseases

== ENCOUNTER → 2020-03-23 | Outpatient (CLI) | payer MEDICARE, OTHER ==
[~2020-03-23] MED LIST changes: -AMIT25TA; +AMIT25TA17; +ASPI325T56 PO; +BACI1CAP PO; +DOXY-350 PO; +DULO1CAP6 PO; +FLUT1INH3 INH; +GABA-282; -GABA-843; +HYSI1TAB4 PO; +NARC1SPR NARES; +PRAZ1CAP PO; +PRAZ2CAP PO; +PRED10TA2 PO; +PRED50TA PO; +XALA0.007 OU
[2020-03-23 12:00] LABS: BLOOD UREA NITROGEN 12 MG/DL (7-18); CALCIUM LEVEL 9.7 MG/DL (8.5-10.1); CARBON DIOXIDE LEVEL 37 MEQ/L (21-32); CHLORIDE LEVEL 99 MEQ/L (98-107); CREATININE FOR GFR 0.98 MG/DL (0.70-1.30); GLOMERULAR FILTRATION RATE > 60.0 (>56); GLUCOSE, FASTING 103 MG/DL (70-100); POTASSIUM SERUM 4.4 MEQ/L (3.5-5.1); SODIUM LEVEL 138 MEQ/L (136-145)
[2020-03-23 12:15] LABS: HEMOGLOBIN A1c 6.5 %
== END ==
LOC: M LAB 10:50
PROVIDERS: ATTEND Family Medicine
DX: E11.9 Type 2 diabetes mellitus without complications (principal)

== ENCOUNTER 2020-05-06 08:50 | Emergency (ER) | payer MEDICARE, OTHER ==
[~2020-05-06] VITALS: Ht 172.7 cm; Wt 95.5 kg
[2020-05-06 09:16] VITALS: BP 149/80
[2020-05-06] MEDS ORDERED: NS 1,000 ML IV ONE (09:25)
[2020-05-06 10:01] LABS: BASO # 0.1 10^3/uL (0.0-0.2); BASO % 0.5 % (0.0-1.0); EOS # 0.2 10^3/uL (0.0-0.5); EOS % 1.2 % (0.0-3.0); HEMATOCRIT 49.1 % (42.0-52.0); HEMOGLOBIN 16.2 g/dl (13.5-17.5); LYMPH # 1.4 10^3/uL (1.5-5.0); LYMPH % 11.4 % (24.0-44.0); MEAN CORPUSCULAR HEMOGLOBIN 28.7 pg (27.0-33.0); MEAN CORPUSCULAR VOLUME 87.1 fl (80.0-96.0); MONO # 1.3 10^3/uL (0.0-0.8); MONO % 9.9 % (2.0-8.0); NEUTROPHILS # 9.6 10^3/uL (1.5-8.5); NEUTROPHILS % 76.4 % (36.0-66.0); PLATELET COUNT, AUTOMATED 217 10^3/uL (150-450); RED BLOOD COUNT 5.64 10^6/uL (4.30-6.10); WHITE BLOOD COUNT 12.6 10^3/uL (4.0-10.0)
[2020-05-06] MEDS ORDERED: OXYC20TA40 (10:01)
[2020-05-06] MEDS ORDERED: TRAZ-189 (10:01)
--- NOTE | 2020-05-06 10:05 | REP ---
INDICATION: L flank pain radiating to abd and groin, h/o kidney stones COMPARISON: None TECHNIQUE: Axial noncontrast images from the lung bases to the pubic symphysis with coronal and sagittal reformations. This CT examination was performed using the following dose reduction techniques: Automated exposure control, adjustment of mA and/or kv according to the patient's size, and use of iterative reconstruction technique. FINDINGS: Acute left-sided obstructive uropathy with a edematous enlargement to the left kidney, perinephric stranding, and hydroureteronephrosis secondary to a 4.5 mm calculus in the proximal ureter (series 201 images [id number]). Left kidney includes low-density lesions suggesting cyst. Right kidney includes 3 mm nonobstructing calculus and low-density lesions suggesting cyst. Liver, pancreas, gallbladder, and bilateral adrenal glands are normal. Spleen demonstrates parenchymal calcifications consistent with prior granulomatous disease. The enteric system is without obstruction or acute inflammatory process. Diffuse colonic and sigmoid diverticulosis noted without acute diverticulitis. Normal terminal ileum and appendix identified in the right lower quadrant. 2 cm fat containing periumbilical hernia noted. Pelvis demonstrates mildly prominent prostate gland and normal bladder. No pelvic fluid. No ascites. No free air. No obvious adenopathy. Atherosclerotic changes to the aorta without aneurysm or dissection. Musculoskeletal structures demonstrate degenerative changes. Lung bases demonstrate right middle lobe atelectasis. IMPRESSION: 1. Acute left-sided obstructive uropathy with a 4.5 mm calculus in the proximal ureter. Further nonacute bilateral renal findings as above. 2. Diverticulosis without acute diverticulitis. 3. Fat containing periumbilical hernia. 4. Mild prostatomegaly. 5. Right middle lobe atelectasis. <Electronically signed by Edward Amaro > 05/06/20 1002
[2020-05-06 10:25] LABS: BILIRUBIN,DIRECT 0.2 MG/DL (0.0-0.2); BILIRUBIN,TOTAL 0.9 MG/DL (0.2-1.0); TOTAL PROTEIN 6.6 GM/DL (6.4-8.2)
[2020-05-06] MEDS ORDERED: KETOROLAC 30 MG/ML 1ML VIAL IV ONE (10:50)
[2020-05-06] MEDS ORDERED: ONDANSETRON 4MG/2ML VIAL IV ONE (10:50)
[2020-05-06] MEDS ORDERED: FLOM0.4C39 PO (12:24)
[2020-05-06] MEDS ORDERED: KETO10TAB PO (12:24)
== END 2020-05-06 12:40 | disposition home or self-care (01) ==
LOC: M ED 08:50
DX: N23 Unspecified renal colic (principal); N28.1 Cyst of kidney, acquired; J98.11 Atelectasis; K42.9 Umbilical hernia without obstruction or gangrene; E11.9 Type 2 diabetes mellitus without complications; E78.5 Hyperlipidemia, unspecified; F17.200 Nicotine dependence, unspecified, uncomplicated; F10.10 Alcohol abuse, uncomplicated; F32.9 Major depressive disorder, single episode, unspecified; F43.10 Post-traumatic stress disorder, unspecified; J44.9 Chronic obstructive pulmonary disease, unspecified; K21.9 Gastro-esophageal reflux disease without esophagitis; K57.92 Diverticulitis of intestine, part unspecified, without perforation or abscess without bleeding; G47.33 Obstructive sleep apnea (adult) (pediatric); Z91.018 Allergy to other foods; Z95.5 Presence of coronary angioplasty implant and graft
CPT/HCPCS: 36415; 74176; 80047; 80076; 81001; 82150; 83690; 85025; 87086; 96361; 96374; 99284; J1885; J2405

== ENCOUNTER → 2020-05-25 | Outpatient (CLI) | payer MEDICARE, OTHER ==
[~2020-05-25] MED LIST changes: +FLOM0.4C39 PO; +KETO10TAB PO; +OXYC20TA40; +TRAZ-189
--- NOTE | 2020-05-25 11:14 | REP ---
INDICATION: BILATERAL NEPHROLITHIASIS COMPARISON: None. TECHNIQUE: Supine view of the abdomen and pelvis. FINDINGS: Evaluation of the urinary tract system is limited by overlying bowel gas and technique. No obvious nephrolithiasis noted. Calcifications in the pelvis likely represent phleboliths. Bowel gas pattern is nonspecific. Skeletal structures are intact. IMPRESSION: Nonspecific examination. Limited evaluation for urinary tract calcifications. <Electronically signed by Edward Amaro > 05/25/20 1111
== END ==
LOC: M CLY 10:37
PROVIDERS: ATTEND Family Medicine
DX: N20.0 Calculus of kidney (principal)
CPT/HCPCS: 74018; G0463